=== PATIENT | female | born 1995 | race Caucasian/White ===

== ENCOUNTER 2016-10-22 22:04 | Emergency (ER) | payer OTHER ==
--- NOTE | 2016-10-22 22:11 | EDM.PDOC ---
ED HPI GENERAL MEDICAL PROBLEM - General Chief Complaint: Chest Pain Stated Complaint: PT HAS CHEST AND BACK PAIN Time Seen by Provider: 10/22/16 22:09 - History of Present Illness INITIAL COMMENTS - FREE TEXT/NARRATIVE: HISTORY AND PHYSICAL: History of present illness: Patient's 20-year-old white female presents with chest pain this is vaguely described without associated shortness breath palpitations nausea vomiting fever chills or other concern she states she has had a mild cough this been relatively nonproductive. Patient denies drug or alcohol abuse Review of systems: As per history of present illness and below otherwise all systems reviewed and negative. Past medical history: As per history of present illness and as reviewed below otherwise noncontributory. Surgical history: As per history of present illness and as reviewed below otherwise noncontributory. Social history: No reported history of drug or alcohol abuse. Family history: As per history of present illness and as reviewed below otherwise noncontributory. Physical exam: HEENT: Atraumatic, normocephalic, pupils reactive, negative for conjunctival pallor or scleral icterus, mucous membranes moist, throat clear, neck supple, nontender, trachea midline. Lungs: Clear to auscultation, breath sounds equal bilaterally, chest nontender. Heart: S1S2, regular, negative for clicks, rubs, or JVD. Abdomen: Soft, nondistended, nontender. Negative for masses or hepatosplenomegaly. Negative for costovertebral tenderness. Pelvis: Stable nontender. Genitourinary: Deferred. Rectal: Deferred. Extremities: Atraumatic, negative for cords or calf pain. Neurovascular unremarkable. Neuro: Awake, alert, oriented. Cranial nerves II through XII unremarkable. Cerebellum unremarkable. Motor and sensory unremarkable throughout. Exam nonfocal. Diagnostics: Chest x-ray EKG Therapeutics: None Impression: #1 atypical chest pain Definitive disposition and diagnosis as appropriate pending reevaluation and review of above. - Related Data Allergies Allergy/AdvReac Type Severity Reaction Status Date / Time amoxicillin [Amoxicillin] Allergy Difficulty Verified 07/09/15 19:12 Breathing Iodinated Contrast Media - Allergy Rash Verified 07/09/15 19:12 Oral and [Iodinated Contrast Media - IV Dye] mushroom Allergy Bronchospas Verified 07/10/15 00:30 ms Penicillins Allergy Cannot Verified 07/09/15 19:12 Remember Home Meds: Home Meds FLUoxetine HCl [Fluoxetine] 10 mg PO DAILY 03/06/14 [History] Pregabalin [Lyrica] 75 mg PO BID 03/06/14 [History] Past Medical History - Past Health History Medical/Surgical History: Denies Medical/Surgical History Cardiovascular History: Reports: None Respiratory History: Reports: None Gastrointestinal History: Reports: None Genitourinary History: Reports: None GAS REVERSER History: Reports: None Musculoskeletal History: Reports: Other (See Below) Other Musculoskeletal History: rheumatoid arthritis Neurological History: Reports: None Psychiatric History: Reports: None Oncologic (Cancer) History: Reports: None - Infectious Disease History Infectious Disease History: Reports: None - Past Surgical History HEENT Surgical History: Reports: Tonsillectomy Social & Family History - Family History Family Medical History: Noncontributory - Tobacco Use Smoking Status *Q: Never Smoker Second Hand Smoke Exposure: No - Alcohol Use Days Per Week of Alcohol Use: 0 - Recreational Drug Use Recreational Drug Use: No ED ROS GENERAL - Review of Systems Review Of Systems: ROS reveals no pertinent complaints other than HPI. ED EXAM, GENERAL - Physical Exam Exam: See Below (See dictation) Departure - Departure Time of Disposition: 22:10 Disposition: Home, Self-Care 01 Condition: good Clinical Impression: Atypical chest pain - Discharge Information Forms: ED Department Discharge Additional Instructions: The following information is given to patients seen in the emergency department who are being discharged to home. This information is to outline your options for follow-up care. We provide all patients seen in our emergency department with a follow-up referral. The need for follow-up, as well as the timing and circumstances, are variable depending upon the specifics of your emergency department visit. If you don't have a primary care physician on staff, we will provide you with a referral. We always advise you to contact your personal physician following an emergency department visit to inform them of the circumstance of the visit and for follow-up with them and/or the need for any referrals to a consulting specialist. The emergency department will also refer you to a specialist when appropriate. This referral assures that you have the opportunity for followup care with a specialist. All of these measure are taken in an effort to provide you with optimal care, which includes your followup. Under all circumstances we always encourage you to contact your private physician who remains a resource for coordinating your care. When calling for followup care, please make the office aware that this follow-up is from your recent emergency room visit. If for any reason you are refused follow-up, please contact the emergency department at and asked to speak to the emergency department charge nurse. Follow-up primary medical doctor wanted today's return as needed as discussed
[2016-10-22 23:21] VITALS: BP 117/69
--- NOTE | 2016-10-23 10:52 | CR ---
EXAM DATE: 10/22/16 PATIENT'S AGE: 20 Patient: HANDY COONEY Facility: [place], [place] Site . Site : 1995 Study: XRay Chest [id number] 10:28:03 PM Ordering Physician: Doctor Fortune Final Report: INDICATION: chest pain, SOB TECHNIQUE: Chest radiograph 1 view COMPARISON: 09/21/14 FINDINGS: The study is moderately limited by body habitus. Cardiovascular and mediastinum: The cardiac silhouette is normal in appearance and size. Mediastinum is within normal limits. Lungs and pleural space: Both lungs are unremarkable in appearance with very small lung volumes. No sign of pleural effusion. No pneumothorax is seen. Bones and soft tissues: No significant findings. IMPRESSION: 1. No acute cardiopulmonary disease seen. The study is moderately limited by body habitus. Dictated by: Taurus Corley MD @ 10/22/2016 22:47:37 (Electronic Signature) Report Signed by Proxy. MTDD
== END 2016-10-22 23:20 | disposition home or self-care (01) ==
LOC: MW.ED 22:04
DX: R07.89 Other chest pain (principal); M06.9 Rheumatoid arthritis, unspecified; Z88.0 Allergy status to penicillin; Z88.1 Allergy status to other antibiotic agents; Z91.041 Radiographic dye allergy status; Z79.899 Other long term (current) drug therapy; Z98.890 Other specified postprocedural states
CPT/HCPCS: 71010; 71010-26; 93005; 99282; 99285-25

== ENCOUNTER 2017-04-23 00:11 | Emergency (ER) | payer OTHER ==
[2017-04-23] MEDS ORDERED: Ondansetron 4 MG/2 ML SDV IVPUSH ONE (00:42)
[2017-04-23] MEDS ORDERED: Sodium Chloride 0.9% 10 ML Syringe FLUSH PRN (00:42)
[2017-04-23] MEDS ORDERED: Sodium Chloride 0.9% 2.5 ML Syringe FLUSH PRN (00:42)
[2017-04-23] MEDS ORDERED: Ketorolac 30 MG/ML SDV IVPUSH ONE (00:42)
[2017-04-23] MEDS ORDERED: Morphine 2 MG/ML Syringe IVPUSH ONE (00:42)
[2017-04-23] MEDS ORDERED: Sodium Chloride 0.9% 1,000 ML IV ONE (00:42)
[2017-04-23] MEDS ORDERED: diphenhydrAMINE 50 MG/ML SDV IVPUSH ONE (00:44)
--- NOTE | 2017-04-23 00:44 | EDM.PDOC ---
ED HPI GENERAL MEDICAL PROBLEM - General Chief Complaint: Gastrointestinal Problem Stated Complaint: VOMITING, ABDOMINAL PAIN, SHAKY Time Seen by Provider: 04/23/17 00:35 - History of Present Illness INITIAL COMMENTS - FREE TEXT/NARRATIVE: HISTORY AND PHYSICAL: History of present illness: The patient is a 21-year-old female who presents with complaints of right upper quadrant right upper abdominal pain associated with nausea vomiting and one episode of diarrhea that started after she ate wings and syriac fries at approximately 4:30 PM. According to the patient she was having a complete normal day and had no systemic complaints and she went and had a meal and ate the food as above and as she was eating it she started not feeling very good and on the drive home she started having the right upper abdominal pain and then the vomiting and diarrhea ensued. She said she only had one large episode of diarrhea and none since and it was not black or bloody. She has been able to tolerate sips of fluids since this started but has not taken anything for the pain and the pain has not subsided. It is localized to the right upper abdomen and it is not right flank in etiology. The patient has no urinary complaints and says that she has severe PCO S. She's never had any abdominal surgeries. The patient tells me that she had a gallbladder ultrasound less than a year ago and was told that her gallbladder was "inflamed" but she did not have any further problems and did not seek follow-up treatment. She says that she intermittently will have problems with certain foods causing her to be gassy and have loose stools but nothing causing pain like today. The patient states that initially when her symptoms started she thought it was just "food poisoning " but when the pain persisted she thought it might be her gallbladder again. Review of systems: As per history of present illness and below otherwise all systems reviewed and negative. Past medical history: As per history of present illness and as reviewed below otherwise noncontributory. Surgical history: As per history of present illness and as reviewed below otherwise noncontributory. Social history: No reported history of drug or alcohol abuse. Family history: As per history of present illness and as reviewed below otherwise noncontributory. Physical exam: General: Well-developed overweight female who is nontoxic and vital signs of been reviewed by me. HEENT: Atraumatic, normocephalic, pupils reactive, negative for conjunctival pallor or scleral icterus, mucous membranes tacky, throat clear, neck supple, nontender, trachea midline. Lungs: Clear to auscultation, breath sounds equal bilaterally, chest nontender. Heart: S1S2, regular rate and rhythm no overt murmurs Abdomen: Soft, nondistended, bowel sounds are hypoactive and there is mild tenderness on deep palpation in the right upper abdomen area without rebound or guarding. Negative for masses or hepatosplenomegaly. Negative for costovertebral tenderness. Pelvis: Stable nontender. Genitourinary: Deferred. Rectal: Deferred. Extremities: Atraumatic, negative for cords or calf pain. Neurovascular unremarkable. Neuro: Awake, alert, oriented. Cranial nerves II through XII unremarkable. Cerebellum unremarkable. Motor and sensory unremarkable throughout. Exam nonfocal. Diagnostics: CBC CMP amylase lipase UA UCG CT scan of the abdomen and pelvis Therapeutics: IV fluids Zofran and morphine Toradol and Bentyl Patient is feeling much improved and all results have been discussed with her including the CAT scan findings which only revealed some incidental inguinal lymph nodes which I told her she needs to monitor and follow up with a provider. I will give her Zofran and Bentyl for home and advised her on a low- fat diet and close follow-up. Impression: Abdominal pain with vomiting and diarrhea improved Definitive disposition and diagnosis as appropriate pending reevaluation and review of above. RUQ radiates to Right Back Pain Score (Numeric/FACES): 7 - Related Data Allergies Allergy/AdvReac Type Severity Reaction Status Date / Time amoxicillin [Amoxicillin] Allergy Difficulty Verified 10/22/16 22:14 Breathing Iodinated Contrast- Oral and Allergy Rash Verified 10/22/16 22:14 IV Dye [Iodinated Contrast Media - IV Dye] mushroom Allergy Difficulty Verified 04/23/17 00:25 Breathing Penicillins Allergy Difficulty Verified 04/23/17 00:25 Breathing Home Meds: Home Meds . [No Known Home Meds] 04/23/17 [History] Past Medical History - Past Health History Medical/Surgical History: Denies Medical/Surgical History Cardiovascular History: Reports: None Respiratory History: Reports: None Gastrointestinal History: Reports: None Genitourinary History: Reports: None PRINT SUPPORT SPECIALIST History: Reports: None Musculoskeletal History: Reports: RA, Other (See Below) Other Musculoskeletal History: rheumatoid arthritis Neurological History: Reports: Migraines Psychiatric History: Reports: None Oncologic (Cancer) History: Reports: None - Infectious Disease History Infectious Disease History: Reports: None - Past Surgical History HEENT Surgical History: Reports: Tonsillectomy Social & Family History - Family History Family Medical History: Noncontributory - Tobacco Use Smoking Status *Q: Never Smoker Years of Tobacco use: 2 Packs/Tins Daily: 0.1 Second Hand Smoke Exposure: No - Alcohol Use Days Per Week of Alcohol Use: 0 - Recreational Drug Use Recreational Drug Use: No ED ROS GENERAL - Review of Systems Review Of Systems: ROS reveals no pertinent complaints other than HPI. ED EXAM, GENERAL - Physical Exam Exam: See Below (See dictation) Course - Vital Signs Last Recorded V/S: Last Vital Signs Temp 36.6 C 04/23/17 00:26 Pulse 107 H 04/23/17 00:26 Resp 18 04/23/17 00:26 BP 137/84 04/23/17 00:26 Pulse Ox 97 04/23/17 00:26 - Orders/Labs/Meds Orders: Active Orders 24 hr Category Date Time Status Abdomen Pelvis w Cont [CT] Stat Exams 04/23/17 00:42 Ordered HCG QUALITATIVE,SERUM [CHEM] Stat Lab 04/23/17 01:39 Ordered UA W/MICROSCOPIC [URIN] Stat Lab 04/23/17 00:41 Ordered Dicyclomine [Bentyl] Med 04/23/17 02:12 Once 20 mg PO ONETIME ONE Iopamidol [Isovue-370 (76%)] Med 04/23/17 01:47 Stat 100 ml IVPUSH ONETIME STA Iopamidol [Isovue-370 (76%)] Med 04/23/17 01:50 Stat 100 ml IVPUSH ONETIME STA Sodium Chloride 0.9% [Normal Saline] 1,000 ml Med 04/23/17 00:42 Active IV STAT Sodium Chloride 0.9% [Saline Flush] Med 04/23/17 00:42 Active 10 ml FLUSH ASDIRECTED PRN Sodium Chloride 0.9% [Saline Flush] Med 04/23/17 00:42 Active 2.5 ml FLUSH ASDIRECTED PRN Saline Lock Insert [OM.PC] Stat Oth 04/23/17 00:41 Ordered Medication Orders Sodium Chloride (Normal Saline) 1,000 mls @ 999 mls/hr IV STAT ONE Stop: 04/23/17 01:42 Last Admin: 04/23/17 01:02 Dose: 999 mls/hr Sodium Chloride (Saline Flush) 10 ml FLUSH ASDIRECTED PRN PRN Reason: Keep Vein Open Sodium Chloride (Saline Flush) 2.5 ml FLUSH ASDIRECTED PRN PRN Reason: Keep Vein Open Labs: Laboratory Tests 04/23/17 04/23/17 Range/Units 00:30 00:30 WBC 13.93 H (4.0-11.0) K/uL RBC 4.72 (4.30-5.90) M/uL Hgb 13.8 (12.0-16.0) g/dL Hct 41.6 (36.0-46.0) % MCV 88.1 (80.0-98.0) fL MCH 29.2 (27.0-32.0) pg MCHC 33.2 (31.0-37.0) g/dL RDW Std Deviation 44.2 (28.0-62.0) fl RDW Coeff of John 14 (11.0-15.0) % Plt Count 306 (150-400) K/uL MPV 9.50 (7.40-12.00) fL Neut % (Auto) 80.4 H (48.0-80.0) % Lymph % (Auto) 12.2 L (16.0-40.0) % [place] % (Auto) 6.6 (0.0-15.0) % Eos % (Auto) 0.5 (0.0-7.0) % Baso % (Auto) 0.3 (0.0-1.5) % Neut # (Auto) 11.2 H (1.4-5.7) K/uL Lymph # (Auto) 1.7 (0.6-2.4) K/uL [place] # (Auto) 0.9 H (0.0-0.8) K/uL Eos # (Auto) 0.1 (0.0-0.7) K/uL Baso # (Auto) 0.0 (0.0-0.1) K/uL Nucleated RBC % 0.0 /100WBC Nucleated RBCs # 0 K/uL Sodium 144 (136-146) mmol/L Potassium 3.9 (3.5-5.1) mmol/L Chloride 108 (98-110) mmol/L Carbon Dioxide 26 (21-31) mmol/L BUN 14 (6.0-23.0) mg/dL Creatinine 1.0 (0.6-1.5) mg/dL Est Cr Clr Drug Dosing 85.09 mL/min Estimated GFR (MDRD) > 60.0 ml/min Glucose 105 (60-110) mg/dL Calcium 9.9 (8.8-10.8) mg/dL Total Bilirubin 0.3 (0.1-1.5) mg/dL AST 18 (5-40) IU/L ALT 16 (8-54) IU/L Alkaline Phosphatase 76 (40-150) Total Protein 8.1 H (6.0-8.0) g/dL Albumin 4.5 (3.5-5.0) g/dL Globulin 3.6 H (2.0-3.5) g/dL Albumin/Globulin Ratio 1.3 (1.3-2.8) Amylase 47 (10-90) U/L Lipase 60 (7-80) U/L Meds: Medications Generic Name Dose Route Start Last Admin Trade Name Freq PRN Reason Stop Dose Admin Sodium Chloride 1,000 mls @ 999 mls/hr 04/23/17 00:42 04/23/17 01:02 Normal Saline IV 04/23/17 01:42 999 mls/hr STAT ONE Administration Sodium Chloride 10 ml 04/23/17 00:42 Saline Flush FLUSH ASDIRECTED PRN Keep Vein Open Sodium Chloride 2.5 ml 04/23/17 00:42 Saline Flush FLUSH ASDIRECTED PRN Keep Vein Open Discontinued Medications Generic Name Dose Route Start Last Admin Trade Name Freq PRN Reason Stop Dose Admin Diphenhydramine HCl 50 mg 04/23/17 00:44 04/23/17 01:05 Benadryl IVPUSH 04/23/17 00:45 50 mg ONETIME ONE Administration Ketorolac Tromethamine 30 mg 04/23/17 00:42 04/23/17 01:04 Toradol IVPUSH 04/23/17 00:43 30 mg ONETIME ONE Administration Morphine Sulfate 2 mg 04/23/17 00:42 04/23/17 01:09 Morphine IVPUSH 04/23/17 00:43 2 mg ONETIME ONE Administration Ondansetron HCl 4 mg 04/23/17 00:42 04/23/17 01:02 Zofran IVPUSH 04/23/17 00:43 4 mg ONETIME ONE Administration Departure - Departure Time of Disposition: 02:13 Disposition: Home, Self-Care 01 Condition: Good Clinical Impression: Vomiting, Diarrhea, Abdominal pain - Discharge Information Referrals: PCP,None [Primary Care Provider] - Forms: ED Department Discharge Additional Instructions: The following information is given to patients seen in the emergency department who are being discharged to home. This information is to outline your options for follow-up care. We provide all patients seen in our emergency department with a follow-up referral. The need for follow-up, as well as the timing and circumstances, are variable depending upon the specifics of your emergency department visit. If you don't have a primary care physician on staff, we will provide you with a referral. We always advise you to contact your personal physician following an emergency department visit to inform them of the circumstance of the visit and for follow-up with them and/or the need for any referrals to a consulting specialist. The emergency department will also refer you to a specialist when appropriate. This referral assures that you have the opportunity for followup care with a specialist. All of these measure are taken in an effort to provide you with optimal care, which includes your followup. Under all circumstances we always encourage you to contact your private physician who remains a resource for coordinating your care. When calling for followup care, please make the office aware that this follow-up is from your recent emergency room visit. If for any reason you are refused follow-up, please contact the [facility] emergency department at and ask to speak to the emergency department charge nurse. [facility] Primary care- [place] [address] Push hydration and and eating a bland low-fat diet. Please call our clinic and follow-up with a provider in the next 1-2 days for reevaluation and further care. Rest and return to ER as needed and as discussed. Use medications you have been given via [facility], Zofran and dicyclomine, as needed for abdominal cramping nausea and vomiting. - My Orders Last 24 Hours: My Active Orders 04/23/17 00:41 UA W/MICROSCOPIC [URIN] Stat Saline Lock Insert [OM.PC] Stat 04/23/17 00:42 Abdomen Pelvis w Cont [CT] Stat Sodium Chloride 0.9% [Normal Saline] 1,000 ml IV STAT Sodium Chloride 0.9% [Saline Flush] 10 ml FLUSH ASDIRECTED PRN Sodium Chloride 0.9% [Saline Flush] 2.5 ml FLUSH ASDIRECTED PRN 04/23/17 01:39 HCG QUALITATIVE,SERUM [CHEM] Stat 04/23/17 01:47 Iopamidol [Isovue-370 (76%)] 100 ml IVPUSH ONETIME STA 04/23/17 01:50 Iopamidol [Isovue-370 (76%)] 100 ml IVPUSH ONETIME STA 04/23/17 02:12 Dicyclomine [Bentyl] 20 mg PO ONETIME ONE - Assessment/Plan Last 24 Hours: My Active Orders 04/23/17 00:41 UA W/MICROSCOPIC [URIN] Stat Saline Lock Insert [OM.PC] Stat 04/23/17 00:42 Abdomen Pelvis w Cont [CT] Stat Sodium Chloride 0.9% [Normal Saline] 1,000 ml IV STAT Sodium Chloride 0.9% [Saline Flush] 10 ml FLUSH ASDIRECTED PRN Sodium Chloride 0.9% [Saline Flush] 2.5 ml FLUSH ASDIRECTED PRN 04/23/17 01:39 HCG QUALITATIVE,SERUM [CHEM] Stat 04/23/17 01:47 Iopamidol [Isovue-370 (76%)] 100 ml IVPUSH ONETIME STA 04/23/17 01:50 Iopamidol [Isovue-370 (76%)] 100 ml IVPUSH ONETIME STA 04/23/17 02:12 Dicyclomine [Bentyl] 20 mg PO ONETIME ONE
[2017-04-23 01:03] LABS: CHLORIDE,CL 108 mmol/L (98-110); SODIUM,NA 144 mmol/L (136-146)
[2017-04-23] MEDS ORDERED: Iopamidol 755 Mg/ML 100 ML Bottle IVPUSH STA ×2 (01:47→01:50)
[2017-04-23] MEDS ORDERED: Iopamidol 755 Mg/ML 100 ML Bottle IV ONE (01:48)
[2017-04-23] MEDS ORDERED: Dicyclomine 10 MG Cap PO ONE (02:12)
[2017-04-23] MEDS ORDERED: Dicyclomine 10 MG Cap ONE (02:21)
[2017-04-23 06:30] VITALS: BP 97/45
--- NOTE | 2017-04-23 10:36 | CT ---
EXAM DATE: 04/23/17 PATIENT'S AGE: 21 Patient: HANDY COONEY Facility: [place], [place] Site . Site : 1995 Study: CT Abdomen/Pelvis [id number] 1:58:18 AM Ordering Physician: Layla Campuzano Final Report: INDICATION: Right sided abdominal pain, vomiting. TECHNIQUE: CT Abdomen and pelvis with i.v. contrast. Coronal and sagittal reformats were obtained. CONTRAST: 100 mL Isovue 370 COMPARISON: None FINDINGS: Lower chest: Unremarkable. Liver: Unremarkable. Spleen: Unremarkable. Pancreas: Unremarkable. Gallbladder: Unremarkable. Kidney: Unremarkable. No kidney or ureteral stones or obstruction seen. Adrenal: Unremarkable. Bowel: Unremarkable. The appendix is normal in appearance and size. Vascular: Unremarkable. Lymph: Mild bilateral inguinal adenopathy present with lymph nodes measuring up to 1 cm. Peritoneum: Unremarkable. No pneumoperitoneum is seen. No significant ascites is noted. Pelvis: Unremarkable. Soft tissue: Unremarkable. Bone: Unremarkable for age. IMPRESSION: 1. Unremarkable with no CT correlate for the patient`s symptoms seen. Dictated by Taurus Corley MD @ 04/23/2017 2:03:26 AM Dictated by: Taurus Corley MD @ 04/23/2017 02:03:31 (Electronic Signature) Report Signed by Proxy. [facility]ARE SYSTEMAleks
== END 2017-04-23 02:50 | disposition home or self-care (01) ==
LOC: MW.ED 00:11
DX: R10.11 Right upper quadrant pain (principal); R11.2 Nausea with vomiting, unspecified; R19.7 Diarrhea, unspecified; Z88.1 Allergy status to other antibiotic agents; Z88.0 Allergy status to penicillin; Z91.041 Radiographic dye allergy status; Z91.018 Allergy to other foods
CPT/HCPCS: 36415; 74177; 80053; 81001; 82150; 83690; 84703; 85025; 96361; 96374; 96375; 99284; J1200; J1885; J2270; J2405; J7040

== ENCOUNTER 2019-01-03 18:04 | Emergency (ER) | payer OTHER ==
[2019-01-03] MEDS ORDERED: Sodium Chloride 0.9% 1,000 ML IV ONE (18:21)
--- NOTE | 2019-01-03 18:30 | EDM.PDOC ---
ED HPI GENERAL MEDICAL PROBLEM - General Chief Complaint: Headache Stated Complaint: STOMACH PAIN Time Seen by Provider: 01/03/19 18:11 Source of Information: Reports: Patient History Limitations: Reports: No Limitations - History of Present Illness INITIAL COMMENTS - FREE TEXT/NARRATIVE: HISTORY AND PHYSICAL: History of present illness: Patient is a 23-year-old female presents to the ED today with concern of headache and abdominal pain 3 days. Patient states that she has taken over-the- counter ibuprofen without relief of symptoms. Patient states she feels nauseous and dizzy and worse when trying to sit up or move. Patient states the abdominal pain is in the upper abdomen and worse when she tries to eat or drink but she has been eating and drinking appropriately. Patient denies any health history. Patient states she is sexually active and not on control so there might be a chance of . Patient denies fever, chills, chest pain, shortness of breath, or cough. Denies neck stiff ness, change in vision, syncope, or near syncope. Denies vomiting, diarrhea, constipation, or dysuria. Has not noted any blood in urine or stool. Patient has been eating and drinking appropriately. Review of systems: As per history of present illness and below otherwise all systems reviewed and negative. Past medical history: As per history of present illness and as reviewed below otherwise noncontributory. Surgical history: As per history of present illness and as reviewed below otherwise noncontributory. Social history: See social history for further information Family history: As per history of present illness and as reviewed below otherwise noncontributory. Physical exam: General: Patient is alert, oriented, and in no acute distress. Patient laying comfortably on exam table. HEENT: Atraumatic, normocephalic, pupils equal and reactive bilaterally, negative for conjunctival pallor or scleral icterus, mucous membranes moist, TMs normal bilaterally, throat clear, neck supple, nontender, trachea midline. No drooling or trismus noted. No meningeal signs. No hot potato voice noted. Lungs: Clear to auscultation, breath sounds equal bilaterally, chest nontender. Heart: S1S2, regular rate and rhythm without overt murmur Abdomen: Soft, nondistended, mild-moderate tenderness to palpation of the upper abdomen. Negative for masses or hepatosplenomegaly. Negative for costovertebral tenderness. Pelvis: Stable nontender. Genitourinary: Deferred. Rectal: Deferred. Skin: Intact, warm, dry. No lesions or rashes noted. Extremities: Atraumatic, negative for cords or calf pain. Neurovascular unremarkable. Neuro: Awake, alert, oriented. Cranial nerves II through XII unremarkable. Cerebellum unremarkable. Motor and sensory unremarkable throughout. Exam nonfocal. Notes: Patient expresses resolution of symptoms with therapeutics today. Discussed the importance for follow-up with a primary care provider. Voices understanding and is agreeable to plan of care. Denies any further questions or concerns at this time. Diagnostics: CBC, CMP, UA, hCG Quant, lipase, abd/pelvic CT, head CT, urine culture Therapeutics: saline, Toradol, Benadryl, Reglan, Zofran Prescription: None Impression: Upper abdominal pain Headache, unspecified Plan: 1. Encourage small but frequent sips of fluid to prevent dehydration. 2. You can alternate ibuprofen and Tylenol as directed for pain and discomfort. 3. Follow up with her primary care provider as discussed. Return to the ED as needed and as discussed. Definitive disposition and diagnosis as appropriate pending reevaluation and review of above. Headache Pain Score (Numeric/FACES): 6 - Related Data Allergies Allergy/AdvReac Type Severity Reaction Status Date / Time amoxicillin [Amoxicillin] Allergy Difficulty Verified 01/03/19 18:10 Breathing Iodinated Contrast Media Allergy Rash Verified 01/03/19 18:10 [Iodinated Contrast Media - IV Dye] mushroom Allergy Difficulty Verified 01/03/19 18:10 Breathing Penicillins Allergy Difficulty Verified 01/03/19 18:10 Breathing Home Meds: Home Meds Cyclobenzaprine [Flexeril] 10 mg PO BEDTIME #10 tab 02/25/18 [Rx] Diclofenac Sodium [Voltaren] 75 mg PO BIDMEALS #20 tab.cr 02/25/18 [Rx] Past Medical History - Past Health History Medical/Surgical History: Denies Medical/Surgical History HEENT History: Reports: None Cardiovascular History: Reports: None Respiratory History: Reports: None Gastrointestinal History: Reports: None Genitourinary History: Reports: None SILK WEAVER History: Reports: None Musculoskeletal History: Reports: RA, Other (See Below) Other Musculoskeletal History: rheumatoid arthritis Neurological History: Reports: Migraines Psychiatric History: Reports: Anxiety Endocrine/Metabolic History: Reports: None Hematologic History: Reports: None Immunologic History: Reports: None Oncologic (Cancer) History: Reports: None Dermatologic History: Reports: None - Infectious Disease History Infectious Disease History: Reports: None - Past Surgical History HEENT Surgical History: Reports: Tonsillectomy Social & Family History - Family History Family Medical History: Noncontributory - Tobacco Use Smoking Status *Q: Never Smoker - Caffeine Use Caffeine Use: Reports: Coffee - Recreational Drug Use Recreational Drug Use: No ED ROS GENERAL - Review of Systems Review Of Systems: ROS reveals no pertinent complaints other than HPI. ED EXAM, GENERAL - Physical Exam Exam: See Below (See dictation) Course - Vital Signs Last Recorded V/S: Last Vital Signs Temp 36.3 C 01/03/19 18:11 Pulse 65 01/03/19 18:11 Resp 18 01/03/19 18:11 BP 119/71 01/03/19 18:11 Pulse Ox 97 01/03/19 18:11 - Orders/Labs/Meds Orders: Active Orders 24 hr Category Date Time Status EKG Documentation Completion [RC] STAT Care 01/03/19 18:21 Active Labs: Laboratory Tests 01/03/19 01/03/19 01/03/19 Range/Units 18:30 18:30 18:30 WBC 6.75 (4.0-11.0) K/uL RBC 4.33 (4.30-5.90) M/uL Hgb 12.7 (12.0-16.0) g/dL Hct 38.5 (36.0-46.0) % MCV 88.9 (80.0-98.0) fL MCH 29.3 (27.0-32.0) pg MCHC 33.0 (31.0-37.0) g/dL RDW Std Deviation 44.7 (28.0-62.0) fl RDW Coeff of John 14 (11.0-15.0) % Plt Count 364 (150-400) K/uL MPV 9.10 (7.40-12.00) fL Neut % (Auto) 53.6 (48.0-80.0) % Lymph % (Auto) 36.0 (16.0-40.0) % Page % (Auto) 8.0 (0.0-15.0) % Eos % (Auto) 2.1 (0.0-7.0) % Baso % (Auto) 0.3 (0.0-1.5) % Neut # (Auto) 3.6 (1.4-5.7) K/uL Lymph # (Auto) 2.4 (0.6-2.4) K/uL Page # (Auto) 0.5 (0.0-0.8) K/uL Eos # (Auto) 0.1 (0.0-0.7) K/uL Baso # (Auto) 0.0 (0.0-0.1) K/uL Nucleated RBC % 0.0 /100WBC Nucleated RBCs # 0 K/uL Sodium 141 (136-145) mmol/L Potassium 3.9 (3.5-5.1) mmol/L Chloride 105 (98-107) mmol/L Carbon Dioxide 27.4 (21.0-32.0) mmol/L BUN 14 (7.0-18.0) mg/dL Creatinine 1.0 (0.6-1.0) mg/dL Est Cr Clr Drug Dosing 83.63 mL/min Estimated GFR (MDRD) > 60.0 ml/min Glucose 98 (74-106) mg/dL Calcium 9.4 (8.5-10.1) mg/dL Total Bilirubin 0.2 (0.2-1.0) mg/dL AST 11 L (15-37) IU/L ALT 21 (14-63) IU/L Alkaline Phosphatase 77 (46-116) U/L Total Protein 7.0 (6.4-8.2) g/dL Albumin 3.8 (3.4-5.0) g/dL Globulin 3.2 (2.6-4.0) g/dL Albumin/Globulin Ratio 1.2 (0.9-1.6) Lipase 248 (73-393) U/L HCG, Qual NEGATIVE (NEG) Urine Color Urine Appearance Urine pH (5.0-8.0) Ur Specific [place] (1.001-1.035) Urine Protein (NEGATIVE) mg/dL Urine Glucose (UA) (NEGATIVE) mg/dL Urine Ketones (NEGATIVE) mg/dL Urine Occult Blood (NEGATIVE) Urine Nitrite (NEGATIVE) Urine Bilirubin (NEGATIVE) Urine Urobilinogen (<2.0) EU/dL Ur Leukocyte Esterase (NEGATIVE) Urine RBC (0-2/HPF) Urine WBC (0-5/HPF) Ur Epithelial Cells (NONE-FEW) Urine Bacteria (NEGATIVE) 01/03/19 Range/Units 19:50 WBC (4.0-11.0) K/uL RBC (4.30-5.90) M/uL Hgb (12.0-16.0) g/dL Hct (36.0-46.0) % MCV (80.0-98.0) fL MCH (27.0-32.0) pg MCHC (31.0-37.0) g/dL RDW Std Deviation (28.0-62.0) fl RDW Coeff of John (11.0-15.0) % Plt Count (150-400) K/uL MPV (7.40-12.00) fL Neut % (Auto) (48.0-80.0) % Lymph % (Auto) (16.0-40.0) % Page % (Auto) (0.0-15.0) % Eos % (Auto) (0.0-7.0) % Baso % (Auto) (0.0-1.5) % Neut # (Auto) (1.4-5.7) K/uL Lymph # (Auto) (0.6-2.4) K/uL Page # (Auto) (0.0-0.8) K/uL Eos # (Auto) (0.0-0.7) K/uL Baso # (Auto) (0.0-0.1) K/uL Nucleated RBC % /100WBC Nucleated RBCs # K/uL Sodium (136-145) mmol/L Potassium (3.5-5.1) mmol/L Chloride (98-107) mmol/L Carbon Dioxide (21.0-32.0) mmol/L BUN (7.0-18.0) mg/dL Creatinine (0.6-1.0) mg/dL Est Cr Clr Drug Dosing mL/min Estimated GFR (MDRD) ml/min Glucose (74-106) mg/dL Calcium (8.5-10.1) mg/dL Total Bilirubin (0.2-1.0) mg/dL AST (15-37) IU/L ALT (14-63) IU/L Alkaline Phosphatase (46-116) U/L Total Protein (6.4-8.2) g/dL Albumin (3.4-5.0) g/dL Globulin (2.6-4.0) g/dL Albumin/Globulin Ratio (0.9-1.6) Lipase (73-393) U/L HCG, Qual (NEG) Urine Color YELLOW Urine Appearance SLT CLOUDY Urine pH 6.0 (5.0-8.0) Ur Specific [place] >= 1.030 (1.001-1.035) Urine Protein TRACE H (NEGATIVE) mg/dL Urine Glucose (UA) NEGATIVE (NEGATIVE) mg/dL Urine Ketones TRACE H (NEGATIVE) mg/dL Urine Occult Blood LARGE H (NEGATIVE) Urine Nitrite NEGATIVE (NEGATIVE) Urine Bilirubin NEGATIVE (NEGATIVE) Urine Urobilinogen 0.2 (<2.0) EU/dL Ur Leukocyte Esterase NEGATIVE (NEGATIVE) Urine RBC 2-4 (0-2/HPF) Urine WBC 1-2 (0-5/HPF) Ur Epithelial Cells MODERATE (NONE-FEW) Urine Bacteria 1+ H (NEGATIVE) Meds: Medications Discontinued Medications Generic Name Dose Route Start Last Admin Trade Name Freq PRN Reason Stop Dose Admin Diphenhydramine HCl 25 mg 01/03/19 19:04 01/03/19 19:56 Benadryl IVPUSH 01/03/19 19:05 25 mg ONETIME ONE Administration Sodium Chloride 1,000 mls @ 999 mls/hr 01/03/19 18:21 01/03/19 18:42 Normal Saline IV 01/03/19 19:21 999 mls/hr BOLUS ONE Administration Ketorolac Tromethamine 30 mg 01/03/19 19:03 01/03/19 19:58 Toradol IVPUSH 01/03/19 19:04 30 mg ONETIME ONE Administration Metoclopramide HCl 10 mg 01/03/19 19:04 01/03/19 20:00 Reglan IV 01/03/19 19:05 10 mg ONETIME ONE Administration Ondansetron HCl 4 mg 01/03/19 19:03 01/03/19 19:56 Zofran IVPUSH 01/03/19 19:04 4 mg ONETIME ONE Administration Departure - Departure Time of Disposition: 20:57 Disposition: Home, Self-Care 01 Clinical Impression: Upper abdominal pain Headache Qualifiers: Headache type: unspecified Headache chronicity pattern: acute headache Intractability: not intractable Qualified Code(s): R51 - Headache - Discharge Information Referrals: PCP,Not In Area [Primary Care Provider] - Forms: ED Department Discharge Additional Instructions: The following information is given to patients seen in the emergency department who are being discharged to home. This information is to outline your options for follow-up care. We provide all patients seen in our emergency department with a follow-up referral. The need for follow-up, as well as the timing and circumstances, are variable depending upon the specifics of your emergency department visit. If you don't have a primary care physician on staff, we will provide you with a referral. We always advise you to contact your personal physician following an emergency department visit to inform them of the circumstance of the visit and for follow-up with them and/or the need for any referrals to a consulting specialist. The emergency department will also refer you to a specialist when appropriate. This referral assures that you have the opportunity for follow-up care with a specialist. All of these measure are taken in an effort to provide you with optimal care, which includes your follow-up. Under all circumstances we always encourage you to contact your private physician who remains a resource for coordinating your care. When calling for follow-up care, please make the office aware that this follow-up is from your recent emergency room visit. If for any reason you are refused follow-up, please contact the [facility] Emergency Department at and asked to speak to the emergency department charge nurse. [facility] Primary Care [address] [place] [address] [id number] [address] [address] 1. Encourage small but frequent sips of fluid to prevent dehydration. 2. You can alternate ibuprofen and Tylenol as directed for pain and discomfort. 3. Follow up with her primary care provider as discussed. Return to the ED as needed and as discussed. - My Orders Last 24 Hours: My Active Orders 08/19/19 18:21 EKG Documentation Completion [RC] STAT - Assessment/Plan Last 24 Hours: My Active Orders 01/03/19 18:21 EKG Documentation Completion [RC] STAT
[2019-01-03] MEDS ORDERED: Ketorolac 30 MG/ML SDV IVPUSH ONE (19:03)
[2019-01-03] MEDS ORDERED: Ondansetron 4 MG/2 ML SDV IVPUSH ONE (19:03)
[2019-01-03] MEDS ORDERED: diphenhydrAMINE 50 MG/ML SDV IVPUSH ONE (19:04)
[2019-01-03] MEDS ORDERED: Metoclopramide 10 MG/2 ML SDV IV ONE (19:04)
[2019-01-03 19:05] LABS: CHLORIDE,CL 105 mmol/L (98-107); SODIUM,NA 141 mmol/L (136-145)
--- NOTE | 2019-01-03 20:39 | CT ---
INDICATION: Headache COMPARISON: None available. TECHNIQUE: CT examination of the head was performed with 3 mm thick axial sections without intravenous contrast. Images were obtained from the vertex of the skull through the skull base, and I examined the images with the brain and bone windows. Please note that all CT scans at this facility use dose modulation, iterative reconstruction, and/or weight-based dosing when appropriate to reduce radiation dose to as low as reasonably achievable. FINDINGS: : The brain is normal in appearance for the patient`s age on today`s study, with no sign of mass lesion, mass effect, hemorrhage, or edema. The ventricles and sulci are normal in appearance for the patient`s age. There is an old right medial orbital blowout fracture. The orbits are otherwise normal in appearance. The visualized portions of the paranasal sinuses and mastoids are clear. The osseous structures are normal in their appearance with no sign of abnormality in the skull base or calvarium. IMPRESSION: No sign of any abnormality in the brain. Nothing seen in the brain to correlate with a history of headaches. Old right medial orbital blowout fracture. Please note that all CT scans at this facility use dose modulation, iterative reconstruction, and/or weight-based dosing when appropriate to reduce radiation dose to as low as reasonably achievable. Dictated by Quintin Arndt MD @ Jan 03 2019 8:36PM Signed by Dr. Quintin Arndt @ Jan 03 2019 8:38PM
--- NOTE | 2019-01-03 20:46 | CT ---
INDICATION: Abdominal pain COMPARISON: Previous report of the CT of the abdomen and pelvis from 04/23/2017 TECHNIQUE: CT examination of the abdomen and pelvis was performed without contrast enhancement using 3 mm thick axial sections from the lung bases through the pubic symphysis. Oral contrast was not administered. Please note that all CT scans at this facility use dose modulation, iterative reconstruction, and/or weight-based dosing when appropriate to reduce radiation dose to as low as reasonably achievable. FINDINGS: In the abdomen, the unenhanced liver, spleen, pancreas, and adrenals are normal in appearance. The unenhanced kidneys are normal in appearance. The gallbladder is normal in appearance. The abdominal aorta is normal in caliber with no sign of dilatation. There is no sign of retroperitoneal mass or adenopathy. The stomach, loops of small bowel, and colon in the abdomen are normal in appearance. In the pelvis, the appendix is normal in appearance with no sign of inflammatory process. The loops of small bowel and colon in the pelvis are normal in appearance. The uterus and adnexal regions are normal in appearance. The urinary bladder is normal in appearance. There is no sign of pelvic or inguinal mass or adenopathy. The previously seen mild bilateral inguinal adenopathy has resolved. The lung bases are clear. The osseous structures are normal in appearance for the patient`s age. IMPRESSION: Nothing seen to explain the patient`s abdominal pain. Normal CT of the abdomen without contrast. Normal CT of the pelvis without contrast. Resolution of the previously seen mild bilateral inguinal lymphadenopathy. Please note that all CT scans at this facility use dose modulation, iterative reconstruction, and/or weight-based dosing when appropriate to reduce radiation dose to as low as reasonably achievable. Dictated by Quintin Arndt MD @ Jan 03 2019 8:39PM Signed by Dr. Quintin Arndt @ Jan 03 2019 8:45PM
[2019-01-03 21:10] VITALS: BP 100/60
== END 2019-01-03 21:05 | disposition home or self-care (01) ==
LOC: MW.ED 18:04
DX: R51 Headache (principal); R10.10 Upper abdominal pain, unspecified; Z88.1 Allergy status to other antibiotic agents; Z91.041 Radiographic dye allergy status; Z88.0 Allergy status to penicillin; Z91.018 Allergy to other foods
CPT/HCPCS: 36415; 70450; 74176; 80053; 81001; 83690; 84703; 85025; 93005; 96361; 96374; 96375; 99284; J1200; J1885; J2405; J2765; J7040

== ENCOUNTER 2019-04-28 18:29 | Emergency (ER) | payer OTHER ==
[2019-04-28 19:09] VITALS: BP 116/63; PULSE 104
--- NOTE | 2019-04-28 19:28 | EDM.PDOC ---
ED HPI GENERAL MEDICAL PROBLEM - General Chief Complaint: Respiratory Problem Stated Complaint: COUGH, TEMPERATURE, SOB Time Seen by Provider: 04/28/19 19:20 Source of Information: Reports: Patient History Limitations: Reports: No Limitations - History of Present Illness INITIAL COMMENTS - FREE TEXT/NARRATIVE: HISTORY AND PHYSICAL: History of present illness: Patient presents to the ED with c/o body aches, fever, chills, and cough. She states symptoms started on Thursday. She has been using Ibuprofen and Tylenol routinely without feeling any relief. Patient denies any fever, chills, headache , change in vision, syncope or near syncope. Denies any chest pain, back pain, shortness of breath or cough. Denies any abdominal pain, nausea, vomiting, diarrhea, constipation or dysuria. Has not noted any blood in urine or stool. Patient has been eating and drinking appropriately. Review of systems: As per history of present illness and below otherwise all systems reviewed and negative. Past medical history: As per history of present illness and as reviewed below otherwise noncontributory. Surgical history: As per history of present illness and as reviewed below otherwise noncontributory. Social history: See social history for further information Family history: As per history of present illness and as reviewed below otherwise noncontributory. Physical exam: General: Well developed and well nourished 23 year old female. A&O x 3. Nontoxic appearing and no acute distress. HEENT: Atraumatic, normocephalic, pupils equal and reactive bilaterally, negative for conjunctival pallor or scleral icterus, mucous membranes moist, TMs normal bilaterally, throat clear, neck supple, nontender, trachea midline. No drooling or trismus noted. No meningeal signs. No hot potato voice noted. Lungs: Clear to auscultation, breath sounds equal bilaterally, chest nontender. Heart: S1S2, regular rate and rhythm without overt murmur Abdomen: Soft, nondistended, nontender. Negative for masses or hepatosplenomegaly. Negative for costovertebral tenderness. Pelvis: Stable nontender. Skin: Intact, warm, dry. No lesions or rashes noted. Extremities: Atraumatic, moves all extremities per self without difficulty or deficits, negative for cords or calf pain. Neurovascular unremarkable. Neuro: Awake, alert, oriented. Cranial nerves II through XII unremarkable. Cerebellum unremarkable. Motor and sensory unremarkable throughout. Exam nonfocal. Notes: Patient's influenza B is positive. CXR shows no acute findings. VSS. Medication and supportive care measures were reviewed and discussed. Voices understanding and is agreeable to plan of care. Denies any further questions or concerns at this time. Diagnostics: CXR, Influenza Therapeutics: None Prescription: Phenergan w/ codeine (#4oz) Impression: Influenza B Plan: 1. Standard contact precautions (covering mouth while coughing, avoid sharing drinking cups and eating utensils). Please make sure you're doing good handwashing as this is contagious. 2. Please take the medications as directed. Phenergan with codeine will cause drowsiness, do not take while driving. 3. Supportive care measures such as Tylenol and/or ibuprofen for pain and fever management.Encourage small frequent sips of fluids to prevent dehydration. 4. Follow-up with your drain technician in the next 1-2 days. Return to the ED as needed and as discussed. Definitive disposition and diagnosis as appropriate pending reevaluation and review of above. generalized body aches Pain Score (Numeric/FACES): 5 - Related Data Allergies Allergy/AdvReac Type Severity Reaction Status Date / Time amoxicillin [Amoxicillin] Allergy Difficulty Verified 04/28/19 18:42 Breathing Iodinated Contrast Media Allergy Rash Verified 04/28/19 18:42 [Iodinated Contrast Media - IV Dye] mushroom Allergy Difficulty Verified 04/28/19 18:42 Breathing Penicillins Allergy Difficulty Verified 04/28/19 18:42 Breathing Home Meds: Home Meds DULoxetine [Cymbalta] 60 mg PO DAILY 04/28/19 [History] Past Medical History - Past Health History Medical/Surgical History: Denies Medical/Surgical History HEENT History: Reports: None Cardiovascular History: Reports: None Respiratory History: Reports: None Gastrointestinal History: Reports: None Genitourinary History: Reports: None 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 Musculoskeletal History: Reports: RA, Other (See Below) Other Musculoskeletal History: rheumatoid arthritis Neurological History: Reports: Migraines Psychiatric History: Reports: Anxiety Endocrine/Metabolic History: Reports: None Hematologic History: Reports: None Immunologic History: Reports: None Oncologic (Cancer) History: Reports: None Dermatologic History: Reports: None - Infectious Disease History Infectious Disease History: Reports: None - Past Surgical History HEENT Surgical History: Reports: Tonsillectomy Social & Family History - Family History Family Medical History: Noncontributory - Tobacco Use Smoking Status *Q: Never Smoker - Caffeine Use Caffeine Use: Reports: Coffee, Soda - Recreational Drug Use Recreational Drug Use: No ED ROS GENERAL - Review of Systems Review Of Systems: Comprehensive ROS is negative, except as noted in HPI. ED EXAM, GENERAL - Physical Exam Exam: See Below (See dictation) Course - Vital Signs Last Recorded V/S: Last Vital Signs Temp 98.1 F 04/28/19 18:39 Pulse 104 H 04/28/19 18:39 Resp 18 04/28/19 18:39 BP 116/63 04/28/19 18:39 Pulse Ox 97 04/28/19 18:39 - Orders/Labs/Meds Orders: Active Orders 24 hr Category Date Time Status Chest 2V [CR] Stat Exams 04/28/19 18:33 Ordered Departure - Departure Time of Disposition: 19:37 Disposition: Home, Self-Care 01 Clinical Impression: Influenza B - Discharge Information Instructions: Influenza, Adult Referrals: Maida Venegas HELMET COVERER [Primary Care Provider] - Forms: ED Department Discharge Additional Instructions: The following information is given to patients seen in the emergency department who are being discharged to home. This information is to outline your options for follow-up care. We provide all patients seen in our emergency department with a follow-up referral. The need for follow-up, as well as the timing and circumstances, are variable depending upon the specifics of your emergency department visit. If you don't have a primary care physician on staff, we will provide you with a referral. We always advise you to contact your personal physician following an emergency department visit to inform them of the circumstance of the visit and for follow-up with them and/or the need for any referrals to a consulting specialist. The emergency department will also refer you to a specialist when appropriate. This referral assures that you have the opportunity for follow-up care with a specialist. All of these measure are taken in an effort to provide you with optimal care, which includes your follow-up. Under all circumstances we always encourage you to contact your private physician who remains a resource for coordinating your care. When calling for follow-up care, please make the office aware that this follow-up is from your recent emergency room visit. If for any reason you are refused follow-up, please contact the [facility] Emergency Department at and asked to speak to the emergency department charge nurse. [facility] [address] [place] [address] [address] 1. Standard contact precautions (covering mouth while coughing, avoid sharing drinking cups and eating utensils). Please make sure you're doing good handwashing as this is contagious. 2. Please take the medications as directed. Phenergan with codeine will cause drowsiness, do not take while driving. 3. Supportive care measures such as Tylenol and/or ibuprofen for pain and fever management.Encourage small frequent sips of fluids to prevent dehydration. 4. Follow-up with your drain technician in the next 1-2 days. Return to the ED as needed and as discussed. Sepsis Event Note - Evaluation Sepsis Screening Result: No Definite Risk - Focused Exam Vital Signs: Vital Signs Temp Pulse Resp BP Pulse Ox 04/28/19 18:39 98.1 F 104 H 18 116/63 97 Date Exam was Performed: 04/28/19 Time Exam was Performed: 19:33 - My Orders Last 24 Hours: My Active Orders 04/28/19 18:33 Chest 2V [CR] Stat - Assessment/Plan Last 24 Hours: My Active Orders 04/28/19 18:33 Chest 2V [CR] Stat
--- NOTE | 2019-04-28 20:22 | CR ---
INDICATION: Cough, shortness of breath TECHNIQUE: Chest 2 views. COMPARISON: October 22, 2016 FINDINGS: Cardiovascular and mediastinum: Heart size and vasculature are normal in caliber and appearance. Mediastinum is within normal limits. Lungs and pleural spaces: Lungs are clear. No sign of infiltrate or mass. No sign of pleural effusion. No pneumothorax. Bones and soft tissues: No significant findings. IMPRESSION: No sign of acute disease. Dictated by Maranda Andrea MD @ Apr 28 2019 8:21PM Signed by Dr. Maranda Andrea @ Apr 28 2019 8:21PM
== END 2019-04-28 20:24 | disposition home or self-care (01) ==
LOC: MW.ED 18:29
DX: J10.1 Influenza due to other identified influenza virus with other respiratory manifestations (principal); Z88.0 Allergy status to penicillin; Z91.018 Allergy to other foods; Z91.041 Radiographic dye allergy status; Z88.1 Allergy status to other antibiotic agents
CPT/HCPCS: 71046; 71046-26; 87804; 99283; 99285-25

== ENCOUNTER 2020-09-24 21:20 | Emergency (ER) | payer SELFPAY ==
[2020-09-24] MEDS ORDERED: Albuterol 6.7 GM Inhaler INH ONE (21:48)
--- NOTE | 2020-09-24 21:51 | EDM.PDOC ---
ED HPI GENERAL MEDICAL PROBLEM - General Chief Complaint: Respiratory Problem Stated Complaint: COVID SYMPTOMS Time Seen by Provider: 09/24/20 21:28 - History of Present Illness INITIAL COMMENTS - FREE TEXT/NARRATIVE: History of present illness: [] The patient has 5 to 7 days of fever and body aches as well as headache. She developed a cough today and shortness of breath. She has a past history of asthma and uses an inhaler. She has not tried her inhaler today. She works and is busy running around at work. She does not have any children. She lives with her significant other. Review of systems: As per history of present illness and below otherwise all systems reviewed and negative. Past medical history: As per history of present illness and as reviewed below otherwise noncontributory. Surgical history: As per history of present illness and as reviewed below otherwise noncontributory. Social history: No reported history of drug or alcohol abuse. Family history: As per history of present illness and as reviewed below otherwise noncontributory. Physical exam: Constitutional - well developed, well-nourished and in no acute distress HEENT - normocephalic, no evidence of trauma - external nose and mouth normal - no mass in neck and no JVD - mucosae moist EYES - full EOM, PERRL, no icterus - no evidence of inflammation, injection, or drainage Respiratory - no respiratory distress, equal bilateral expansion, lungs clear to auscultation and no abnormal lung sounds. She has a troublesome cough but no obvious wheeze. There is no stridor. Cardiovascular - Regular Rhythm with S1 and S2 appreciated and no murmur, gallop or rub. GI - abdomen soft without distension or organomegaly - normal bowel sounds - no guard or rebound Musculoskeletal no gross deformity of long bones or joints - no tenderness, swelling or edema Neurologic - Alert and oriented times four - CN II-XII grossly intact - motor sensory and coordination symmetrically normal Psychiatric - appropriate mood and affect with normal thought content Hematologic - No petechiae or purpura - mucosa appropriate color and sclera not pale - normal nail bed color and refill Integument - no rash or evidence of trauma - normal turgor Diagnostics: [] Therapeutics: [] Impression: [] Plan: [] Definitive disposition and diagnosis as appropriate pending reevaluation and review of above. headache Pain Score (Numeric/FACES): 7 chest Pain Score (Numeric/FACES): 7 - Related Data Allergies Allergy/AdvReac Type Severity Reaction Status Date / Time amoxicillin [Amoxicillin] Allergy Difficulty Verified 04/28/19 18:42 Breathing Iodinated Contrast Media Allergy Anaphylactic Verified 09/24/20 21:35 [Iodinated Contrast Media - Shock IV Dye] mushroom Allergy Difficulty Verified 04/28/19 18:42 Breathing Penicillins Allergy Difficulty Verified 04/28/19 18:42 Breathing Home Meds: Home Meds Albuterol Sulfate [Albuterol Sulfate HFA] 2 puff INH Q6H PRN 09/24/20 [History] Past Medical History - Past Health History Medical/Surgical History: Denies Medical/Surgical History HEENT History: Reports: None Cardiovascular History: Reports: None Respiratory History: Reports: None Gastrointestinal History: Reports: None Genitourinary History: Reports: None 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 Musculoskeletal History: Reports: RA, Other (See Below) Other Musculoskeletal History: rheumatoid arthritis Neurological History: Reports: Migraines Psychiatric History: Reports: Anxiety Endocrine/Metabolic History: Reports: None Hematologic History: Reports: None Immunologic History: Reports: None Oncologic (Cancer) History: Reports: None Dermatologic History: Reports: None - Infectious Disease History Infectious Disease History: Reports: None - Past Surgical History HEENT Surgical History: Reports: Tonsillectomy Social & Family History - Family History Family Medical History: No Pertinent Family History - Caffeine Use Caffeine Use: Reports: Coffee, Soda ED ROS GENERAL - Review of Systems Review Of Systems: Comprehensive ROS is negative, except as noted in HPI. ED EXAM, GENERAL - Physical Exam Exam: See Below Free Text/Narrative:: My physical exam is in the HPI #1 Interpretation EKG Interpretation Comments: EKG done by protocol at 2152 hrs. shows a sinus rhythm with a heart rate of 87 and AR 115 and QT duration of 424. The axis is 30. The QRS and normal ST and T are normal. My impression this is not demonstrating any acute injury or ar rhythmia. Course - Vital Signs Text/Narrative:: 2301 hrs. patient markedly improved after inhaler. COVID-19 positive. X-ray clear. Patient's not hypoxic. Will be discharged in satisfactory condition. Last Recorded V/S: Last Vital Signs Temp 38.3 C H 05/10/21 21:26 Pulse 94 09/24/20 21:26 Resp 20 09/24/20 21:26 BP 116/78 09/24/20 21:26 Pulse Ox 100 09/24/20 21:26 - Orders/Labs/Meds Orders: Active Orders 24 hr Category Date Time Status RT Post Treatment Assessment [RC] Click to Edit Care 09/24/20 21:48 Active RT Pre-Treatment Assessment [RC] Click to Edit Care 09/24/20 21:48 Active Labs: Laboratory Tests 09/24/20 Range/Units 22:10 Influenza Type A RNA NEGATIVE (NEGATIVE) Influenza Type B RNA NEGATIVE (NEGATIVE) SARS-CoV-2 RNA (NANCY) POSITIVE H (NEGATIVE) Meds: Medications Discontinued Medications Generic Name Dose Route Start Last Admin Trade Name Andre PRN Reason Stop Dose Admin Albuterol 8 gm 09/24/20 21:48 09/24/20 22:05 Albuterol 6.7 Gm Inhaler INH 09/24/20 21:49 Not Given ONETIME ONE Albuterol Confirm 09/24/20 22:01 09/24/20 22:04 Albuterol 8 Gm Inhaler Administered 09/24/20 22:02 8 gm Dose Administration 8 gm INH .STK-MED ONE Departure - Departure Time of Disposition: 23:04 Disposition: Home, Self-Care 01 Condition: Good Clinical Impression: Bronchitis due to COVID-19 virus - Discharge Information Instructions: Acute Bronchitis, Adult, [id number], 10 Things You Can Do to Manage Your COVID-19 Symptoms at Home - CDC, COVID-19 Frequently Asked Questions Referrals: PCP,Not In Area [Primary Care Provider] - Forms: ED Department Discharge Additional Instructions: [facility] - Primary Care [address] [place] [id number] [facility] [address] [place] [id number] The following information is given to patients seen in the emergency department who are being discharged to home. This information is to outline your options for follow-up care. We provide all patients seen in our emergency department with a follow-up referral. The need for follow-up, as well as the timing and circumstances, are variable depending upon the specifics of your emergency department visit. If you don't have a primary care physician on staff, we will provide you with a referral. We always advise you to contact your personal physician following an emergency department visit to inform them of the circumstance of the visit and for follow-up with them and/or the need for any referrals to a consulting specialist. The emergency department will also refer you to a specialist when appropriate. This referral assures that you have the opportunity for follow-up care with a specialist. All of these measure are taken in an effort to provide you with optimal care, which includes your follow-up. Under all circumstances we always encourage you to contact your private physician who remains a resource for coordinating your care. When calling for follow-up care, please make the office aware that this follow-up is from your recent emergency room visit. If for any reason you are refused follow-up, please contact the [facility] Emergency Department at and asked to speak to the emergency department charge nurse. Sepsis Event Note (ED) - Evaluation Sepsis Screening Result: No Definite Risk - Focused Exam Vital Signs: Vital Signs Temp Pulse Resp BP Pulse Ox 09/24/20 21:26 38.3 C H 94 20 116/78 100 - My Orders Last 24 Hours: My Active Orders 09/24/20 21:48 RT Post Treatment Assessment [RC] Click to Edit RT Pre-Treatment Assessment [RC] Click to Edit - Assessment/Plan Last 24 Hours: My Active Orders 09/24/20 21:48 RT Post Treatment Assessment [RC] Click to Edit RT Pre-Treatment Assessment [RC] Click to Edit
[2020-09-24] MEDS ORDERED: Albuterol 8 GM Inhaler INH ONE (22:01)
--- NOTE | 2020-09-24 22:21 | CR ---
Indication: Cough and fever Technique: Chest 1 view Comparison: April 28, 2019 Findings/Impression: Cardiovascular and mediastinum: Heart size and vasculature are normal in caliber and appearance. Mediastinum is within normal limits. Lungs and pleural space: Lungs are clear. No sign of infiltrate or mass. No sign of pleural effusion. No pneumothorax. Bones and soft tissues: No significant findings. Dictated by Maranda Andrea MD @ 09/24/2020 10:19:[address] Maranda Andrea @ Sep 24 2020 10:19PM
[2020-09-24 22:53] LABS: CORONAVIRUS COVID-19 NAA POSITIVE (NEGATIVE); INFLUENZA A NAA NEGATIVE (NEGATIVE); INFLUENZA B NAA NEGATIVE (NEGATIVE)
[2020-09-25 00:25] VITALS: BP 119/73; PULSE 90
== END 2020-09-24 23:22 | disposition home or self-care (01) ==
LOC: MW.ED 21:20
DX: U07.1 COVID-19 (principal); J40 Bronchitis, not specified as acute or chronic; Z88.0 Allergy status to penicillin; Z91.041 Radiographic dye allergy status; Z91.018 Allergy to other foods
CPT/HCPCS: 0240U; 71045; 93005; 99285; A9270

== ENCOUNTER 2020-09-29 05:35 | Inpatient (IN) | payer SELFPAY ==
[2020-09-29] MEDS ORDERED: Sodium Chloride 0.9% 10 ML Syringe FLUSH PRN (06:03)
[2020-09-29] MEDS ORDERED: Sodium Chloride 0.9% 2.5 ML Syringe FLUSH PRN (06:03)
[2020-09-29] MEDS ORDERED: Dexamethasone 10 MG/ML SDV IVPUSH ONE (06:06)
[2020-09-29] MEDS ORDERED: Ketorolac 15 MG/ML SDV IVPUSH ONE (06:06)
[2020-09-29] MEDS ORDERED: Acetaminophen 500 MG Tab PO ONE (06:06)
[2020-09-29] MEDS ORDERED: Lactated Ringers 1,000 ML IV SCH (06:15)
--- NOTE | 2020-09-29 06:18 | EDM.PDOC ---
ED HPI GENERAL MEDICAL PROBLEM - General Chief Complaint: Respiratory Problem Stated Complaint: BREATHING PROBLEM Time Seen by Provider: 09/29/20 05:53 - History of Present Illness INITIAL COMMENTS - FREE TEXT/NARRATIVE: HISTORY AND PHYSICAL: History of present illness: This is a 24-year-old female with history significant for asthma, rheumatoid arthritis (currently not on any medications), fibromyalgia as well as a recent diagnosis of coronavirus on September 24 documented here at [facility], who presents ER today secondary to increasing shortness of breath, persistent fevers, diffuse myalgias, nonproductive cough, sore throat that is been progressively getting worse since her diagnosis. Patient reports that she lives with her significant other who has no immunocompromised concerns. Patient reports that she has not been diagnosed with coronavirus in the past nor has she received the coronavirus vaccination. Patient reports that she works as a [employer]. Patient admits to tactile fevers. Patient denies any abdominal pain. Patient reports she has had nausea with no vomiting or diarrhea. Patient denies any dysuria, frequency, urgency. Patient denies any productive cough. Patient denies any hemoptysis. Patient denies any calf swelling or edema. Patient is currently not on any control pills and has not had a history for PE or DVT in the past. Review of systems: As per history of present illness and below otherwise all systems reviewed and negative. Past medical history: As per history of present illness and as reviewed below otherwise noncontributory. Surgical history: As per history of present illness and as reviewed below otherwise noncontributory. Social history: No reported history of drug abuse. Family history: As per history of present illness and as reviewed below otherwise noncontributory. Physical exam: This patient was seen and evaluated during the 2019 SARS-CoV-2 novel coronavirus pandemic period. Community viral transmission is ongoing at time of this encounter and the emergency department is operating under pandemic response procedures. Constitutional: Patient is oriented to person, place, and time. Appears well- developed and well-nourished. No distress. HEENT: Moist mucous membranes, oropharynx mildly erythematous with no exudates. Patient has no stridor. Patient appears to be in no respiratory distress but is slightly is hypnic. Patient's panic membranes are pearly rendon with no bulging or fluid. Neck supple, no nuchal rigidity, no photophobia, no Kernig's sign or Brudzinski sign, patient does not present with signs or symptoms of be consistent with meningitis. Head: Normocephalic and atraumatic Eyes: Right eye exhibits no discharge. Left eye exhibits no discharge. No scleral icterus Neck: Normal range of motion. No tracheal deviation present. Cardiovascular: Tachycardic rate at 110 bpm and regular rhythm. Pulmonary: Effort normal, tachypneic with slightly increased work of breathing with persistent coughing with a deep inspiration. Patient has slight end expiratory wheezing. Abdominal: No distention Musculoskeletal: Normal range of motion. No calf tenderness. No peripheral edema. Negative Homans' sign. Neurologic: Alert and oriented to person, place and time. Skin: [place], warm and dry. Psychiatric: Normal mood and affect. Behavior is normal. Judgment and thought content normal. Nursing note and vital signs have been reviewed Diagnostics: Chest Xray: Normal cardiac silhouette No infiltrates or effusions identified. No PTX No evidence of acute bony fracture. As interpreted by ER MD: Nelly CBC, CMP, D-dimer, lactic acid, blood cultures x2 UA/U EKG Pulse ox: 86 to 92% on room air: Hypoxic Therapeutics: LR x1 L wide open Toradol 15 mg IV Acetaminophen 1 g p.o. Decadron 10 mg IV Albuterol MDI x2 puffs Assessment and plan: This is a 24-year-old female with a recent diagnosis of coronavirus approximately 5 days ago with symptoms starting approximately 10 days ago. Patient presents ER today secondary to increasing shortness of breath, persistent fever, body aches. Patient's pulse ox here in the ED has been fluctuating between 86 to 92% on room air. Patient does have a history of asthma and has been utilizing her albuterol MDIs at home. Patient be given a dose of albuterol MDI here in the ED. Patient also get started on Decadron 2 mg IV as her pulse oximeter has been pulse oxing between 86 to 92% on room air and patient will likely need to be admitted. Patient will have labs drawn and we will evaluate the patient's chest x-ray. At this time patient will be started on supplemental O2. Although patient will likely need admission, I do not believe that the patient this time will require IPPV. Differential diagnosis includes but is not limited to: CHF, ACS, PE, pneumonia, pneumothorax, asthma exacerbation, COPD exacerbation, pleural effusion, pericardial effusion, pericarditis, viral URI, influenza, bronchitis, airway foreign body, anxiety state, and many others. Definitive disposition and diagnosis as appropriate pending reevaluation and review of above. throat Pain Score (Numeric/FACES): 4 - Related Data Allergies Allergy/AdvReac Type Severity Reaction Status Date / Time amoxicillin [Amoxicillin] Allergy Difficulty Verified 09/29/20 05:45 Breathing Iodinated Contrast Media Allergy Anaphylactic Verified 09/29/20 05:45 [Iodinated Contrast Media - Shock IV Dye] mushroom Allergy Difficulty Verified 09/29/20 05:45 Breathing Penicillins Allergy Difficulty Verified 09/29/20 05:45 Breathing Home Meds: Home Meds Albuterol Sulfate [Albuterol Sulfate HFA] 2 puff INH Q6H PRN 09/24/20 [History] Past Medical History - Past Health History Medical/Surgical History: Denies Medical/Surgical History HEENT History: Reports: None Cardiovascular History: Reports: None Respiratory History: Reports: Asthma Gastrointestinal History: Reports: None Genitourinary History: Reports: None ADULT DAYCARE COORDINATOR History: Reports: None Musculoskeletal History: Reports: RA, Other (See Below) Other Musculoskeletal History: rheumatoid arthritis Neurological History: Reports: Migraines Psychiatric History: Reports: Anxiety Endocrine/Metabolic History: Reports: None Hematologic History: Reports: None Immunologic History: Reports: None Oncologic (Cancer) History: Reports: None Dermatologic History: Reports: None - Infectious Disease History Infectious Disease History: Reports: None - Past Surgical History HEENT Surgical History: Reports: Tonsillectomy Respiratory Surgical History: Reports: None Neurological Surgical History: Reports: None Musculoskeletal Surgical History: Reports: None Social & Family History - Family History Family Medical History: No Pertinent Family History - Caffeine Use Caffeine Use: Reports: None - Recreational Drug Use Recreational Drug Use: No ED ROS GENERAL - Review of Systems Review Of Systems: See Below ED EXAM, GENERAL - Physical Exam Exam: See Below Course - Vital Signs Last Recorded V/S: Last Vital Signs Temp 98.6 F 09/29/20 06:58 Pulse 97 09/29/20 06:58 Resp 22 H 09/29/20 06:58 BP 104/55 L 09/29/20 06:58 Pulse Ox 90 L 09/29/20 06:58 - Orders/Labs/Meds Orders: Active Orders 24 hr Category Date Time Status Patient Status [ADT] Routine ADT 09/29/20 07:14 Ordered Blood Pressure Mgt: Sepsis [RC] Q15MX2 Care 09/29/20 06:06 Active Oxygen Therapy Adult [Oxygen Therapy, ED] [] Care 09/29/20 06:53 Active ASDIRECTED Chest 1V Frontal [CR] Stat Exams 09/29/20 06:03 Taken BILIRUBIN DIRECT [CHEM] DAILY Lab 09/30/20 07:15 Ordered BILIRUBIN DIRECT [CHEM] DAILY Lab 10/01/20 07:15 Ordered BILIRUBIN DIRECT [CHEM] DAILY Lab 10/02/20 07:15 Ordered BILIRUBIN DIRECT [CHEM] DAILY Lab 10/03/20 07:15 Ordered COMPREHENSIVE METABOLIC PN,CMP [CHEM] DAILY Lab 09/30/20 07:15 Ordered COMPREHENSIVE METABOLIC PN,CMP [CHEM] DAILY Lab 10/01/20 07:15 Ordered COMPREHENSIVE METABOLIC PN,CMP [CHEM] DAILY Lab 10/02/20 07:15 Ordered COMPREHENSIVE METABOLIC PN,CMP [CHEM] DAILY Lab 10/03/20 07:15 Ordered CULTURE BLOOD [BC] Stat Lab 09/29/20 06:26 Received CULTURE BLOOD [BC] Stat Lab 09/29/20 06:37 Received HCG QUALITATIVE,URINE [URCHEM] Stat Lab 09/29/20 06:07 Ordered UA W/MICROSCOPIC [URIN] Stat Lab 09/29/20 06:04 Ordered Lactated Ringers [Ringers, Lactated] 1,000 ml Med 09/29/20 06:15 Active IV ASDIRECTED Sodium Chloride 0.9% [Saline Flush] Med 09/29/20 06:03 Active 10 ml FLUSH ASDIRECTED PRN Sodium Chloride 0.9% [Saline Flush] Med 09/29/20 06:03 Active 2.5 ml FLUSH ASDIRECTED PRN Blood Culture x2 Reflex Set [OM.PC] Stat Oth 09/29/20 06:04 Ordered Saline Lock Insert [OM.PC] Stat Oth 09/29/20 06:04 Ordered Severe Sepsis Onset Time [OM.PC] Stat Oth 09/29/20 06:04 Ordered Medication Orders Lactated Ringer's (Ringers, Lactated) 1,000 mls @ 999 mls/hr IV ASDIRECTED RPEM Last Admin: 09/29/20 06:11 Dose: 999 mls/hr Documented by: MICHELL Sodium Chloride (Sodium Chloride 0.9% 10 Ml Syringe) 10 ml FLUSH ASDIRECTED PRN PRN Reason: Keep Vein Open Last Admin: 09/29/20 06:11 Dose: 10 ml Documented by: MICHELL Sodium Chloride (Sodium Chloride 0.9% 2.5 Ml Syringe) 2.5 ml FLUSH ASDIRECTED PRN PRN Reason: Keep Vein Open Last Admin: 09/29/20 06:11 Dose: 2.5 ml Documented by: MICHELL Labs: Laboratory Tests 09/29/20 09/29/20 09/29/20 Range/Units 06:26 06:26 06:26 WBC 3.73 L (4.0-11.0) K/uL RBC 4.58 (4.30-5.90) M/uL Hgb 13.8 (12.0-16.0) g/dL Hct 40.8 (36.0-46.0) % MCV 89.1 (80.0-98.0) fL MCH 30.1 (27.0-32.0) pg MCHC 33.8 (31.0-37.0) g/dL RDW Std Deviation 43.9 (28.0-62.0) fl RDW Coeff of John 13 (11.0-15.0) % Plt Count 157 (150-400) K/uL MPV 10.00 (7.40-12.00) fL Neut % (Auto) 65.6 (48.0-80.0) % Lymph % (Auto) 27.1 (16.0-40.0) % [place] % (Auto) 7.0 (0.0-15.0) % Eos % (Auto) 0.0 (0.0-7.0) % Baso % (Auto) 0.3 (0.0-1.5) % Neut # (Auto) 2.5 (1.4-5.7) K/uL Lymph # (Auto) 1.0 (0.6-2.4) K/uL [place] # (Auto) 0.3 (0.0-0.8) K/uL Eos # (Auto) 0.0 (0.0-0.7) K/uL Baso # (Auto) 0.0 (0.0-0.1) K/uL Nucleated RBC % 0.0 /100WBC Nucleated RBCs # 0 K/uL D-Dimer, Quantitative (0.0-0.50) mg/L FEU Lactate 0.7 (0.20-2.00) mmol/L Sodium 139 (136-145) mmol/L Potassium 3.5 (3.5-5.1) mmol/L Chloride 102 (98-107) mmol/L Carbon Dioxide 24.0 (21.0-32.0) mmol/L BUN 9 (7.0-18.0) mg/dL Creatinine 1.0 (0.6-1.0) mg/dL Est Cr Clr Drug Dosing 86.00 mL/min Estimated GFR (MDRD) > 60.0 ml/min Glucose 104 (74-106) mg/dL Calcium 7.8 L (8.5-10.1) mg/dL Total Bilirubin 0.3 (0.2-1.0) mg/dL AST 30 (15-37) IU/L ALT 33 (14-63) IU/L Alkaline Phosphatase 55 (46-116) U/L Total Protein 7.6 (6.4-8.2) g/dL Albumin 3.6 (3.4-5.0) g/dL Globulin 4.0 (2.6-4.0) g/dL Albumin/Globulin Ratio 0.9 (0.9-1.6) 09/29/20 Range/Units 06:26 WBC (4.0-11.0) K/uL RBC (4.30-5.90) M/uL Hgb (12.0-16.0) g/dL Hct (36.0-46.0) % MCV (80.0-98.0) fL MCH (27.0-32.0) pg MCHC (31.0-37.0) g/dL RDW Std Deviation (28.0-62.0) fl RDW Coeff of Ojhn (11.0-15.0) % Plt Count (150-400) K/uL MPV (7.40-12.00) fL Neut % (Auto) (48.0-80.0) % Lymph % (Auto) (16.0-40.0) % [place] % (Auto) (0.0-15.0) % Eos % (Auto) (0.0-7.0) % Baso % (Auto) (0.0-1.5) % Neut # (Auto) (1.4-5.7) K/uL Lymph # (Auto) (0.6-2.4) K/uL [place] # (Auto) (0.0-0.8) K/uL Eos # (Auto) (0.0-0.7) K/uL Baso # (Auto) (0.0-0.1) K/uL Nucleated RBC % /100WBC Nucleated RBCs # K/uL D-Dimer, Quantitative 0.44 (0.0-0.50) mg/L FEU Lactate (0.20-2.00) mmol/L Sodium (136-145) mmol/L Potassium (3.5-5.1) mmol/L Chloride (98-107) mmol/L Carbon Dioxide (21.0-32.0) mmol/L BUN (7.0-18.0) mg/dL Creatinine (0.6-1.0) mg/dL Est Cr Clr Drug Dosing mL/min Estimated GFR (MDRD) ml/min Glucose (74-106) mg/dL Calcium (8.5-10.1) mg/dL Total Bilirubin (0.2-1.0) mg/dL AST (15-37) IU/L ALT (14-63) IU/L Alkaline Phosphatase (46-116) U/L Total Protein (6.4-8.2) g/dL Albumin (3.4-5.0) g/dL Globulin (2.6-4.0) g/dL Albumin/Globulin Ratio (0.9-1.6) Meds: Medications Generic Name Dose Route Start Last Admin Trade Name Freq PRN Reason Stop Dose Admin Lactated Ringer's 1,000 mls @ 999 mls/hr 09/29/20 06:15 09/29/20 06:11 Ringers, Lactated IV 999 mls/hr ASDIRECTED PREM Administration Sodium Chloride 10 ml 09/29/20 06:03 09/29/20 06:11 Sodium Chloride 0.9% 10 Ml Syringe FLUSH 10 ml ASDIRECTED PRN Administration Keep Vein Open Sodium Chloride 2.5 ml 09/29/20 06:03 09/29/20 06:11 Sodium Chloride 0.9% 2.5 Ml Syringe FLUSH 2.5 ml ASDIRECTED PRN Administration Keep Vein Open Discontinued Medications Generic Name Dose Route Start Last Admin Trade Name Andre PRN Reason Stop Dose Admin Acetaminophen 1,000 mg 09/29/20 06:06 09/29/20 06:14 Acetaminophen 500 Mg Tab PO 09/29/20 06:07 1,000 mg ONETIME ONE Administration Albuterol Confirm 09/29/20 06:47 09/29/20 06:55 Albuterol 8 Gm Inhaler Administered 09/29/20 06:48 2 puff Dose Administration 8 gm INH .STK-MED ONE Dexamethasone 10 mg 09/29/20 06:06 09/29/20 06:14 Dexamethasone 10 Mg/Ml Sdv IVPUSH 09/29/20 06:07 10 mg ONETIME ONE Administration Remdesivir 200 mg/ Sodium 250 mls @ 250 mls/hr 09/29/20 07:02 Chloride IV 09/29/20 07:03 ONETIME ONE Ketorolac Tromethamine 15 mg 09/29/20 06:06 09/29/20 06:14 Ketorolac 15 Mg/Ml Sdv IVPUSH 09/29/20 06:07 15 mg ONETIME ONE Administration Departure - Departure Time of Disposition: 07:15 Disposition: Admitted As Inpatient 64 Condition: Good Clinical Impression: Pneumonia due to 2019 novel coronavirus Respiratory failure with hypoxia Qualifiers: Chronicity: acute Qualified Code(s): J96.01 - Acute respiratory failure with hypoxia - Discharge Information Referrals: PCP,None [Primary Care Provider] - Forms: ED Department Discharge Sepsis Event Note (ED) - Evaluation Sepsis Screening Result: No Definite Risk - Focused Exam Vital Signs: Vital Signs Temp Temp Pulse Resp BP Pulse Ox Pulse Ox 09/29/20 06:58 98.6 F 97 22 H 104/55 L 90 L 09/29/20 06:44 98.6 F 09/29/20 06:31 22 H 94 L 94 L 09/29/20 06:30 22 H 88 L 09/29/20 06:26 101/62 09/29/20 06:14 101 F H 09/29/20 05:42 101 F H 94 16 113/68 92 L - My Orders Last 24 Hours: My Active Orders 09/29/20 06:03 Chest 1V Frontal [CR] Stat Sodium Chloride 0.9% [Saline Flush] 10 ml FLUSH ASDIRECTED PRN Sodium Chloride 0.9% [Saline Flush] 2.5 ml FLUSH ASDIRECTED PRN 09/29/20 06:04 UA W/MICROSCOPIC [URIN] Stat Blood Culture x2 Reflex Set [OM.PC] Stat Saline Lock Insert [OM.PC] Stat Severe Sepsis Onset Time [OM.PC] Stat 09/29/20 06:06 Blood Pressure Mgt: Sepsis [RC] Q15MX2 09/29/20 06:07 HCG QUALITATIVE,URINE [URCHEM] Stat 09/29/20 06:15 Lactated Ringers [Ringers, Lactated] 1,000 ml IV ASDIRECTED 09/29/20 06:26 CULTURE BLOOD [BC] Stat 09/29/20 06:37 CULTURE BLOOD [BC] Stat 09/29/20 06:53 Oxygen Therapy Adult [Oxygen Therapy, ED] [RC] ASDIRECTED 09/29/20 07:14 Patient Status [ADT] Routine 09/30/20 07:15 BILIRUBIN DIRECT [CHEM] DAILY COMPREHENSIVE METABOLIC PN,CMP [CHEM] DAILY 10/01/20 07:15 BILIRUBIN DIRECT [CHEM] DAILY COMPREHENSIVE METABOLIC PN,CMP [CHEM] DAILY 10/02/20 07:15 BILIRUBIN DIRECT [CHEM] DAILY COMPREHENSIVE METABOLIC PN,CMP [CHEM] DAILY 10/03/20 07:15 BILIRUBIN DIRECT [CHEM] DAILY COMPREHENSIVE METABOLIC PN,CMP [CHEM] DAILY - Assessment/Plan Last 24 Hours: My Active Orders 09/29/20 06:03 Chest 1V Frontal [CR] Stat Sodium Chloride 0.9% [Saline Flush] 10 ml FLUSH ASDIRECTED PRN Sodium Chloride 0.9% [Saline Flush] 2.5 ml FLUSH ASDIRECTED PRN 09/29/20 06:04 UA W/MICROSCOPIC [URIN] Stat Blood Culture x2 Reflex Set [OM.PC] Stat Saline Lock Insert [OM.PC] Stat Severe Sepsis Onset Time [OM.PC] Stat 09/29/20 06:06 Blood Pressure Mgt: Sepsis [RC] Q15MX2 09/29/20 06:07 HCG QUALITATIVE,URINE [URCHEM] Stat 09/29/20 06:15 Lactated Ringers [Ringers, Lactated] 1,000 ml IV ASDIRECTED 09/29/20 06:26 CULTURE BLOOD [BC] Stat 09/29/20 06:37 CULTURE BLOOD [BC] Stat 09/29/20 06:53 Oxygen Therapy Adult [Oxygen Therapy, ED] [RC] ASDIRECTED 09/29/20 07:14 Patient Status [ADT] Routine 09/30/20 07:15 BILIRUBIN DIRECT [CHEM] DAILY COMPREHENSIVE METABOLIC PN,CMP [CHEM] DAILY 10/01/20 07:15 BILIRUBIN DIRECT [CHEM] DAILY COMPREHENSIVE METABOLIC PN,CMP [CHEM] DAILY 10/02/20 07:15 BILIRUBIN DIRECT [CHEM] DAILY COMPREHENSIVE METABOLIC PN,CMP [CHEM] DAILY 10/03/20 07:15 BILIRUBIN DIRECT [CHEM] DAILY COMPREHENSIVE METABOLIC PN,CMP [CHEM] DAILY
[2020-09-29] MEDS ORDERED: Albuterol 8 GM Inhaler INH ONE (06:47)
[2020-09-29 06:52] LABS: BLOOD UREA NITROGEN,BUN 9 mg/dL (7.0-18.0); CHLORIDE,CL 102 mmol/L (98-107); GLUCOSE RANDOM 104 mg/dL (74-106); POTASSIUM,K 3.5 mmol/L (3.5-5.1); SODIUM,NA 139 mmol/L (136-145)
[2020-09-29] MEDS ORDERED: REMDESIVIR 200 MG in Sodium Chloride 0.9% 250 ML IV ONE (07:02)
--- NOTE | 2020-09-29 07:20 | CR ---
Indication: COVID, hypoxia and cough. Technique: Chest 1 view Comparison: Chest x-ray 09/24/2020 Findings/Impression: Cardiovascular and mediastinum: Heart size and vasculature are normal in caliber and appearance. Lungs and pleural space: No pleural effusion or pneumothorax. Interval development of patchy opacity in the right lung base consistent with COVID pneumonia in this setting. Bones and soft tissues: No acute findings. Dictated by Kyle Chavez MD @ 09/29/2020 7:19:[address] Kyle Chavez @ Sep 29 2020 7:19AM
[2020-09-29] MEDS ORDERED: Pneumococcal 23-Valent Conjugate Vaccine 0.5 ML Syringe IM ONE (10:31)
--- NOTE | 2020-09-29 11:37 | PCM.HP.2 ---
H&P History of Present Illness - General Date of Service: 09/29/20 Admit Problem/Dx: Admission Diagnosis/Problem Admission Diagnosis/Problem Hypoxia - History of Present Illness Initial Comments - Free Text/Narative: Patient a 24-year-old female with history significant for asthma, rheumatoid arthritis diagnosed when 12 y/o, (currently not on any medications), fibromyalgia as well as a recent diagnosis of coronavirus on September 24 who presents ER today secondary to increasing shortness of breath, persistent fever s, diffuse myalgias, nonproductive cough, sore throat that is been progressively getting worse since her diagnosis. Patient has not received the coronavirus vaccination. Patient reports she has had nausea with no vomiting or diarrhea. Patient denies any dysuria, frequency, urgency. Patient denies any productive cough. Patient denies any hemoptysis. Patient denies any calf swelling or edema. Patient is currently not on any control pills and has not had a history for PE or DVT in the past. In the ER patient was found to be hypoxic in mid 80s, started on 2L ts on NC which imrpoevd her oxygen stats to 92%, patient ended up needing 4 Lts in next few hours, she was started on IV remdesidvir, IV dexamethasone, CXR showed patchy opacity in right lung base, Patient was admitted for further management throat Pain Score (Numeric/FACES): 4 - Related Data Allergies/Adverse Reactions: Allergies Allergy/AdvReac Type Severity Reaction Status Date / Time amoxicillin [Amoxicillin] Allergy Difficulty Verified 09/29/20 05:45 Breathing Iodinated Contrast Media Allergy Anaphylactic Verified 09/29/20 05:45 [Iodinated Contrast Media - Shock IV Dye] mushroom Allergy Difficulty Verified 09/29/20 05:45 Breathing Penicillins Allergy Difficulty Verified 09/29/20 05:45 Breathing Home Medications: Home Meds Albuterol Sulfate [Albuterol Sulfate HFA] 2 puff INH Q6H PRN 09/24/20 [History] Past Medical History - Past Health History Medical/Surgical History: Denies Medical/Surgical History HEENT History: Reports: None, Impaired Vision Other HEENT History: Corrected vision with glasses. Cardiovascular History: Reports: None Respiratory History: Reports: Asthma Gastrointestinal History: Reports: None Genitourinary History: Reports: None [employer] History: Reports: None Musculoskeletal History: Reports: Fibromyalgia, RA, Other (See Below) Other Musculoskeletal History: rheumatoid arthritis Neurological History: Reports: Migraines Psychiatric History: Reports: Anxiety Endocrine/Metabolic History: Reports: None Hematologic History: Reports: None Immunologic History: Reports: None Oncologic (Cancer) History: Reports: None Dermatologic History: Reports: None - Infectious Disease History Infectious Disease History: Reports: Novel Coronavirus - Past Surgical History HEENT Surgical History: Reports: Adenoidectomy, Tonsillectomy Respiratory Surgical History: Reports: None Neurological Surgical History: Reports: None Musculoskeletal Surgical History: Reports: None Social & Family History - Family History Family Medical History: No Pertinent Family History Cardiac: Reports: Hypertension Other Cardiac Family History: Paternal grandfather Endocrine/Metabolic: Reports: Diabetes, Type I Other Endocrine/Metabolic Family History: Mother and sister both have Type I - Tobacco Use Tobacco Use Status *Q: Former Tobacco User Years of Tobacco use: 0 Used Tobacco, but Quit: Yes Month/Year Tobacco Last Used: 05/2014 Tobacco Use Comment: Only smoked for 2 months. Second Hand Smoke Exposure: No - Caffeine Use Caffeine Use: Reports: Coffee, Soda Caffeine Use Comment: one drink per day - Alcohol Use Days Per Week of Alcohol Use: 1 Number of Drinks Per Day: 0 Total Drinks Per Week: 0 - Recreational Drug Use Recreational Drug Use: No H&P Review of Systems - Review of Systems: Review Of Systems: See Below General: Reports: Chills, Malaise, Weakness. Denies: Fever Pulmonary: Reports: Shortness of Breath, Cough. Denies: Hemoptysis Cardiovascular: Reports: Dyspnea on Exertion. Denies: Chest Pain, Palpitations, Orthopnea Gastrointestinal: Reports: Anorexia, Decreased Appetite, Nausea. Denies: Abdominal Pain, Black Stool, Vomiting Genitourinary: Denies: Dysuria, Frequency, Burning, Pain Musculoskeletal: Denies: Neck Pain, Shoulder Pain, Arm Pain, Back Pain Skin: Denies: Cyanosis, Jaundice, Mottled, Pallor Psychiatric: Denies: Confusion, Depression, Mood Lability, Anxiety Neurological: Denies: Confusion, Dizziness, Headache, Numbness Exam - Exam Exam: See Below - Vital Signs Vital Signs: Last Vital Signs Temp 37.0 C 09/29/20 06:58 Pulse 85 09/29/20 08:45 Resp 18 09/29/20 08:45 BP 103/54 L 09/29/20 08:45 Pulse Ox 96 09/29/20 08:45 Weight: 97.976 kg - Exam General: Alert, Oriented, Cooperative, Mild Distress Neck: Supple, Trachea Midline Lungs: Normal Respiratory Effort, Decreased Breath Sounds, Crackles, Rales Cardiovascular: Regular Rate, Regular Rhythm, Normal S1, Normal S2 GI/Abdominal Exam: Normal Bowel Sounds, Soft, Non-Tender Back Exam: Normal Inspection Extremities: Normal Inspection, Normal Range of Motion - Patient Data Lab Results Last 24 hrs: Laboratory Results - last 24 hr 09/29/20 09/29/20 09/29/20 Range/Units 06:26 06:26 06:26 WBC 3.73 L (4.0-11.0) K/uL RBC 4.58 (4.30-5.90) M/uL Hgb 13.8 (12.0-16.0) g/dL Hct 40.8 (36.0-46.0) % MCV 89.1 (80.0-98.0) fL MCH 30.1 (27.0-32.0) pg MCHC 33.8 (31.0-37.0) g/dL RDW Std Deviation 43.9 (28.0-62.0) fl RDW Coeff of John 13 (11.0-15.0) % Plt Count 157 (150-400) K/uL MPV 10.00 (7.40-12.00) fL Neut % (Auto) 65.6 (48.0-80.0) % Lymph % (Auto) 27.1 (16.0-40.0) % [place] % (Auto) 7.0 (0.0-15.0) % Eos % (Auto) 0.0 (0.0-7.0) % Baso % (Auto) 0.3 (0.0-1.5) % Neut # (Auto) 2.5 (1.4-5.7) K/uL Lymph # (Auto) 1.0 (0.6-2.4) K/uL [place] # (Auto) 0.3 (0.0-0.8) K/uL Eos # (Auto) 0.0 (0.0-0.7) K/uL Baso # (Auto) 0.0 (0.0-0.1) K/uL Nucleated RBC % 0.0 /100WBC Nucleated RBCs # 0 K/uL D-Dimer, Quantitative (0.0-0.50) mg/L FEU Lactate 0.7 (0.20-2.00) mmol/L Sodium 139 (136-145) mmol/L Potassium 3.5 (3.5-5.1) mmol/L Chloride 102 (98-107) mmol/L Carbon Dioxide 24.0 (21.0-32.0) mmol/L BUN 9 (7.0-18.0) mg/dL Creatinine 1.0 (0.6-1.0) mg/dL Est Cr Clr Drug Dosing 86.00 mL/min Estimated GFR (MDRD) > 60.0 ml/min Glucose 104 (74-106) mg/dL Calcium 7.8 L (8.5-10.1) mg/dL Total Bilirubin 0.3 (0.2-1.0) mg/dL AST 30 (15-37) IU/L ALT 33 (14-63) IU/L Alkaline Phosphatase 55 (46-116) U/L Total Protein 7.6 (6.4-8.2) g/dL Albumin 3.6 (3.4-5.0) g/dL Globulin 4.0 (2.6-4.0) g/dL Albumin/Globulin Ratio 0.9 (0.9-1.6) Urine Color Urine Appearance Urine pH (5.0-8.0) Ur Specific [place] (1.001-1.035) Urine Protein (NEGATIVE) mg/dL Urine Glucose (UA) (NEGATIVE) mg/dL Urine Ketones (NEGATIVE) mg/dL Urine Occult Blood (NEGATIVE) Urine Nitrite (NEGATIVE) Urine Bilirubin (NEGATIVE) Urine Ictotest Urine Urobilinogen (<2.0) EU/dL Ur Leukocyte Esterase (NEGATIVE) Urine RBC (0-2/HPF) Urine WBC (0-5/HPF) Ur Epithelial Cells (NONE-FEW) Urine Bacteria (NEGATIVE) Urine Mucus (NONE-MOD) Urine HCG, Qual (NEGATIVE) 09/29/20 09/29/20 09/29/20 Range/Units 06:26 07:00 07:00 WBC (4.0-11.0) K/uL RBC (4.30-5.90) M/uL Hgb (12.0-16.0) g/dL Hct (36.0-46.0) % MCV (80.0-98.0) fL MCH (27.0-32.0) pg MCHC (31.0-37.0) g/dL RDW Std Deviation (28.0-62.0) fl RDW Coeff of John (11.0-15.0) % Plt Count (150-400) K/uL MPV (7.40-12.00) fL Neut % (Auto) (48.0-80.0) % Lymph % (Auto) (16.0-40.0) % [place] % (Auto) (0.0-15.0) % Eos % (Auto) (0.0-7.0) % Baso % (Auto) (0.0-1.5) % Neut # (Auto) (1.4-5.7) K/uL Lymph # (Auto) (0.6-2.4) K/uL [place] # (Auto) (0.0-0.8) K/uL Eos # (Auto) (0.0-0.7) K/uL Baso # (Auto) (0.0-0.1) K/uL Nucleated RBC % /100WBC Nucleated RBCs # K/uL D-Dimer, Quantitative 0.44 (0.0-0.50) mg/L FEU Lactate (0.20-2.00) mmol/L Sodium (136-145) mmol/L Potassium (3.5-5.1) mmol/L Chloride (98-107) mmol/L Carbon Dioxide (21.0-32.0) mmol/L BUN (7.0-18.0) mg/dL Creatinine (0.6-1.0) mg/dL Est Cr Clr Drug Dosing mL/min Estimated GFR (MDRD) ml/min Glucose (74-106) mg/dL Calcium (8.5-10.1) mg/dL Total Bilirubin (0.2-1.0) mg/dL AST (15-37) IU/L ALT (14-63) IU/L Alkaline Phosphatase (46-116) U/L Total Protein (6.4-8.2) g/dL Albumin (3.4-5.0) g/dL Globulin (2.6-4.0) g/dL Albumin/Globulin Ratio (0.9-1.6) Urine Color YELLOW Urine Appearance SLT CLOUDY Urine pH 6.0 (5.0-8.0) Ur Specific [place] 1.025 (1.001-1.035) Urine Protein 30 H (NEGATIVE) mg/dL Urine Glucose (UA) NEGATIVE (NEGATIVE) mg/dL Urine Ketones >=80 (NEGATIVE) mg/dL Urine Occult Blood NEGATIVE (NEGATIVE) Urine Nitrite NEGATIVE (NEGATIVE) Urine Bilirubin SMALL H (NEGATIVE) Urine Ictotest NEGATIVE Urine Urobilinogen 4.0 H (<2.0) EU/dL Ur Leukocyte Esterase NEGATIVE (NEGATIVE) Urine RBC 0-2 (0-2/HPF) Urine WBC 0-2 (0-5/HPF) Ur Epithelial Cells MODERATE (NONE-FEW) Urine Bacteria FEW (NEGATIVE) Urine Mucus LIGHT (NONE-MOD) Urine HCG, Qual NEGATIVE (NEGATIVE) Result Diagrams: 09/29/20 06:26 09/29/20 06:26 Sepsis Event Note - Evaluation Sepsis Screening Result: Sepsis Risk - Focused Exam Vital Signs: Vital Signs Temp Temp Pulse Resp BP Pulse Ox Pulse Ox 09/29/20 08:45 85 18 103/54 L 96 09/29/20 08:30 85 19 103/50 L 90 L 09/29/20 08:10 90 L 09/29/20 07:45 91 19 93/55 L 92 L 09/29/20 06:58 37.0 C 97 22 H 104/55 L 90 L 09/29/20 06:44 37.0 C 09/29/20 06:31 22 H 94 L 94 L 09/29/20 06:30 22 H 88 L 09/29/20 06:26 101/62 09/29/20 06:14 38.3 C H 09/29/20 05:42 38.3 C H 94 16 113/68 92 L - Problem List (1) Pneumonia due to 2019 novel coronavirus SNOMED Code(s): 660516520940279259 ICD Code: U07.1 - COVID-19; J12.82 - PNEUMONIA DUE TO CORONAVIRUS DISEASE 2019 Status: Acute Current Visit: Yes (2) Respiratory failure with hypoxia SNOMED Code(s): 96930692477763316 ICD Code: J96.91 - RESPIRATORY FAILURE, UNSPECIFIED WITH HYPOXIA Status: Acute Current Visit: Yes Qualifiers: Chronicity: acute Qualified Code(s): J96.01 - Acute respiratory failure with hypoxia (3) Arthritis, rheumatoid SNOMED Code(s): 39198646 ICD Code: M06.9 - RHEUMATOID ARTHRITIS, UNSPECIFIED Status: Acute Current Visit: Yes Problem List Initiated/Reviewed/Updated: Yes Orders Last 24hrs: Active Orders 24 hr Category Date Time Status Patient Status [ADT] Routine ADT 09/29/20 07:14 Active Blood Pressure Mgt: Sepsis [RC] [id number] Care 09/29/20 06:06 Active Oxygen Therapy [RC] PRN Care 09/29/20 08:29 Active RT Post Treatment Assessment [RC] Click to Edit Care 09/29/20 08:31 Active RT Pre-Treatment Assessment [RC] Click to Edit Care 09/29/20 08:31 Active Telemetry Monitoring [Cardiac Monitoring] [RC] . Care 09/29/20 10:00 Active DIRECTED Vital Signs [RC] Q4H Care 09/29/20 08:29 Active Clear Liquid Diet [DIET] Diet 09/29/20 Lunch Active BILIRUBIN DIRECT [CHEM] DAILY Lab 09/30/20 07:15 Ordered BILIRUBIN DIRECT [CHEM] DAILY Lab 10/01/20 07:15 Ordered BILIRUBIN DIRECT [CHEM] DAILY Lab 10/02/20 07:15 Ordered BILIRUBIN DIRECT [CHEM] DAILY Lab 10/03/20 07:15 Ordered COMPREHENSIVE METABOLIC PN,CMP [CHEM] DAILY Lab 09/30/20 07:15 Ordered COMPREHENSIVE METABOLIC PN,CMP [CHEM] DAILY Lab 10/01/20 07:15 Ordered COMPREHENSIVE METABOLIC PN,CMP [CHEM] DAILY Lab 10/02/20 07:15 Ordered COMPREHENSIVE METABOLIC PN,CMP [CHEM] DAILY Lab 10/03/20 07:15 Ordered CULTURE BLOOD [BC] Stat Lab 09/29/20 06:26 Received CULTURE BLOOD [BC] Stat Lab 09/29/20 06:37 Received Acetaminophen [TylenoL] Med 09/29/20 08:29 Active 650 mg PO Q4H PRN Albuterol/Ipratropium [Combivent Respimat] Med 09/29/20 12:00 Active See Dose Instructions INH QID Dextromethorphan/guaiFENesin [Robitussin DM] Med 09/29/20 10:13 Active 10 ml PO Q4H PRN Enoxaparin [Lovenox] Med 09/29/20 08:30 Active 40 mg SUBCUT Q24H Lactated Ringers [Ringers, Lactated] 1,000 ml Med 09/29/20 06:15 Active IV ASDIRECTED Pneumococcal Polyvalent-23 Vac [Pneumovax 23] Med 09/29/20 12:00 Once 0.5 ml IM .ONCE ONE Sodium Chloride 0.9% [Saline Flush] Med 09/29/20 06:03 Active 10 ml FLUSH ASDIRECTED PRN Sodium Chloride 0.9% [Saline Flush] Med 09/29/20 06:03 Active 2.5 ml FLUSH ASDIRECTED PRN Blood Culture x2 Reflex Set [OM.PC] Stat Ot 09/29/20 06:04 Ordered RT Acapella [RESPCARE] Routine Ot 09/29/20 08:31 Active Saline Lock Insert [OM.PC] Stat Ot 09/29/20 06:04 Ordered Severe Sepsis Onset Time [OM.PC] Stat Ot 09/29/20 06:04 Ordered Resuscitation Status Routine Resus Stat 09/29/20 08:29 Ordered Medication Orders Acetaminophen (Acetaminophen 325 Mg Tab) 650 mg PO Q4H PRN PRN Reason: Pain (Mild 1-3)/fever Albuterol/Ipratropium (Albuterol/Ipratropium 4 Gm Inhalation [place]) 0 gm INH QID PREM Enoxaparin Sodium (Enoxaparin 40 Mg/0.4 Ml Syringe) 40 mg SUBCUT Q24H PREM Guaifenesin/Dextromethorphan (Guaifenesin/Dextromethorphan 100-10 Mg/5 Ml Soln 10 Ml Cup) 10 ml PO Q4H PRN PRN Reason: Cough Lactated Ringer's (Ringers, Lactated) 1,000 mls @ 999 mls/hr IV ASDIRECTED PREM Last Admin: 09/29/20 06:11 Dose: 999 mls/hr Documented by: [facility] Pneumococcal Polyvalent Vaccine (Pneumococcal Polyvalent-23 Vaccine 0.5 Ml Sdv) 0.5 ml IM .ONCE ONE Stop: 09/29/20 12:01 Sodium Chloride (Sodium Chloride 0.9% 10 Ml Syringe) 10 ml FLUSH ASDIRECTED PRN PRN Reason: Keep Vein Open Last Admin: 09/29/20 06:11 Dose: 10 ml Documented by: MICHELL Sodium Chloride (Sodium Chloride 0.9% 2.5 Ml Syringe) 2.5 ml FLUSH ASDIRECTED PRN PRN Reason: Keep Vein Open Last Admin: 09/29/20 06:11 Dose: 2.5 ml Documented by: MICHELL Assessment/Plan Comment:: 24 y/o F admitted for acute hypoxic failure sec to COVID pneumonia cont oxygen via NC, cont dexamethasone, cont Remdesivir and Lovenox, start Combivent start IV Levaquin for possible superimposed bacterial pneumonia Check CBC, CMP, Mg daily Wean off oxygen as able Eating and drinking well, will hold off any additional IV fluids
[2020-09-29] MEDS: Albuterol/Ipratropium 4 GM Inhalation Spray INH SCH ×3 (12:00→23:33)
[2020-09-29] MEDS ORDERED: Pneumococcal Polyvalent-23 Vaccine 0.5 ML SDV IM ONE (12:00)
[2020-09-29] MEDS: guaiFENesin/Dextromethorphan 100-10 MG/5 ML Soln 10 ML Cup PO PRN ×2 (12:52→20:46)
[2020-09-29] MEDS: Enoxaparin 40 MG/0.4 ML Syringe SUBCUT SCH (13:04)
[2020-09-30] MEDS: Albuterol/Ipratropium 4 GM Inhalation Spray INH SCH ×4 (06:02→23:15)
[2020-09-30 06:53] LABS: BLOOD UREA NITROGEN,BUN 14 mg/dL (7.0-18.0); CARBON DIOXIDE,CO2 25.4 mmol/L (21.0-32.0); GLUCOSE RANDOM 93 mg/dL (74-106)
[2020-09-30 07:03] LABS: CHLORIDE,CL 105 mmol/L (98-107); POTASSIUM,K 3.6 mmol/L (3.5-5.1); SODIUM,NA 142 mmol/L (136-145)
[2020-09-30] MEDS: Dexamethasone 4 MG Tab PO SCH (08:24)
[2020-09-30] MEDS: Enoxaparin 40 MG/0.4 ML Syringe SUBCUT SCH (08:24)
[2020-09-30] MEDS: Acetaminophen 325 MG Tab PO PRN ×2 (08:49→23:15)
[2020-09-30] MEDS: REMDESIVIR 100 MG in Sodium Chloride 0.9% 100 ML IV SCH (09:58)
--- NOTE | 2020-09-30 14:18 | PCM.PN ---
- General Info Date of Service: 09/30/20 - Review of Systems Systems Review Comment:: feeling better, reports cough, fever this morning. - Patient Data Vitals - Most Recent: Last Vital Signs Temp 36.9 C 09/30/20 12:32 Pulse 77 09/30/20 12:32 Resp 19 09/30/20 12:32 BP 109/61 09/30/20 12:32 Pulse Ox 96 09/30/20 12:32 Weight - Most Recent: 97.976 kg I&O - Last 24 Hours: Intake & Output 09/29/20 09/30/20 09/30/20 22:59 06:59 14:59 Intake Total 650 580 Output Total 400 Balance 250 580 Lab Results Last 24 Hours: Laboratory Results - last 24 hr 09/30/20 09/30/20 Range/Units 06:10 06:10 WBC 5.64 (4.0-11.0) K/uL RBC 4.42 (4.30-5.90) M/uL Hgb 13.4 (12.0-16.0) g/dL Hct 39.7 (36.0-46.0) % MCV 89.8 (80.0-98.0) fL MCH 30.3 (27.0-32.0) pg MCHC 33.8 (31.0-37.0) g/dL RDW Std Deviation 44.1 (28.0-62.0) fl RDW Coeff of John 13 (11.0-15.0) % Plt Count 174 (150-400) K/uL MPV 10.20 (7.40-12.00) fL Neut % (Auto) 63.7 (48.0-80.0) % Lymph % (Auto) 28.7 (16.0-40.0) % [place] % (Auto) 7.4 (0.0-15.0) % Eos % (Auto) 0.0 (0.0-7.0) % Baso % (Auto) 0.2 (0.0-1.5) % Neut # (Auto) 3.6 (1.4-5.7) K/uL Lymph # (Auto) 1.6 (0.6-2.4) K/uL [place] # (Auto) 0.4 (0.0-0.8) K/uL Eos # (Auto) 0.0 (0.0-0.7) K/uL Baso # (Auto) 0.0 (0.0-0.1) K/uL Nucleated RBC % 0.0 /100WBC Nucleated RBCs # 0 K/uL Sodium 142 (136-145) mmol/L Potassium 3.6 (3.5-5.1) mmol/L Chloride 105 (98-107) mmol/L Carbon Dioxide 25.4 (21.0-32.0) mmol/L BUN 14 (7.0-18.0) mg/dL Creatinine 0.9 (0.6-1.0) mg/dL Est Cr Clr Drug Dosing 95.55 mL/min Estimated GFR (MDRD) > 60.0 ml/min Glucose 93 (74-106) mg/dL Calcium 8.0 L (8.5-10.1) mg/dL Phosphorus 3.4 (2.6-4.7) mg/dL Magnesium 1.8 (1.8-2.4) mg/dL Total Bilirubin 0.2 (0.2-1.0) mg/dL AST 39 H (15-37) IU/L ALT 38 (14-63) IU/L Alkaline Phosphatase 47 (46-116) U/L Total Protein 7.0 (6.4-8.2) g/dL Albumin 3.3 L (3.4-5.0) g/dL Globulin 3.7 (2.6-4.0) g/dL Albumin/Globulin Ratio 0.9 (0.9-1.6) [place]ales Results Last 24 Hours: Microbiology 09/29/20 06:26 Aerobic Blood Culture - Preliminary Blood - Venous NO GROWTH AFTER 1 DAY Anaerobic Blood Culture - Preliminary NO GROWTH AFTER 1 DAY 09/29/20 06:37 Aerobic Blood Culture - Preliminary Blood - Venous - Lab Draw NO GROWTH AFTER 1 DAY Anaerobic Blood Culture - Preliminary NO GROWTH AFTER 1 DAY Med Orders - Current: Current Medications Acetaminophen (Acetaminophen 325 Mg Tab) 650 mg PO Q4H PRN PRN Reason: Pain (Mild 1-3)/fever Last Admin: 09/30/20 08:49 Dose: 650 mg Documented by: Albuterol/Ipratropium (Albuterol/Ipratropium 4 Gm Inhalation [place]) 0 gm INH QID PREM Last Admin: 09/30/20 11:28 Dose: 1 puff Documented by: Dexamethasone (Dexamethasone 4 Mg Tab) 6 mg PO DAILY [facility] Last Admin: 09/30/20 08:24 Dose: 6 mg Documented by: Enoxaparin Sodium (Enoxaparin 40 Mg/0.4 Ml Syringe) 40 mg SUBCUT Q24H [facility] Last Admin: 09/30/20 08:24 Dose: 40 mg Documented by: Guaifenesin/Dextromethorphan (Guaifenesin/Dextromethorphan 100-10 Mg/5 Ml Soln 10 Ml Cup) 10 ml PO Q4H PRN PRN Reason: Cough Last Admin: 09/29/20 20:46 Dose: 10 ml Documented by: Lactated Ringer's (Ringers, Lactated) 1,000 mls @ 999 mls/hr IV ASDIRECTED PREM Last Admin: 09/29/20 06:11 Dose: 999 mls/hr Documented by: Remdesivir 100 mg/ Sodium (Chloride) 100 mls @ 100 mls/hr IV Q24H [facility] Stop: 10/03/20 08:59 Last Admin: 09/30/20 09:58 Dose: 100 mls/hr Documented by: Sodium Chloride (Sodium Chloride 0.9% 10 Ml Syringe) 10 ml FLUSH ASDIRECTED PRN PRN Reason: Keep Vein Open Last Admin: 09/29/20 06:11 Dose: 10 ml Documented by: Sodium Chloride (Sodium Chloride 0.9% 2.5 Ml Syringe) 2.5 ml FLUSH ASDIRECTED PRN PRN Reason: Keep Vein Open Last Admin: 09/29/20 06:11 Dose: 2.5 ml Documented by: Discontinued Medications Acetaminophen (Acetaminophen 500 Mg Tab) 1,000 mg PO ONETIME ONE Stop: 09/29/20 06:07 Last Admin: 09/29/20 06:14 Dose: 1,000 mg Documented by: Albuterol (Albuterol 8 Gm Inhaler) Confirm Administered Dose 8 gm INH .STK-MED ONE Stop: 09/29/20 06:48 Last Admin: 09/29/20 06:55 Dose: 2 puff Documented by: Dexamethasone (Dexamethasone 10 Mg/Ml Sdv) 10 mg IVPUSH ONETIME ONE Stop: 09/29/20 06:07 Last Admin: 09/29/20 06:14 Dose: 10 mg Documented by: Remdesivir 200 mg/ Sodium (Chloride) 250 mls @ 250 mls/hr IV ONETIME ONE Stop: 09/29/20 07:03 Last Admin: 09/29/20 07:40 Dose: 250 mls/hr Documented by: Ketorolac Tromethamine (Ketorolac 15 Mg/Ml Sdv) 15 mg IVPUSH ONETIME ONE Stop: 09/29/20 06:07 Last Admin: 09/29/20 06:14 Dose: 15 mg Documented by: Pneumococcal Polyvalent Vaccine (Pneumococcal Polyvalent-23 Vaccine 0.5 Ml Sdv) 0.5 ml IM .ONCE ONE Stop: 09/29/20 12:01 - Exam General: Alert, Oriented Neck: Supple Lungs: Clear to Auscultation, Normal Respiratory Effort Cardiovascular: Regular Rate, Regular Rhythm GI/Abdominal Exam: Normal Bowel Sounds, Soft, Non-Tender Extremities: Non-Tender, No Pedal Edema Skin: Warm, Dry, Intact Neurological: No New Focal Deficit - Patient Data Lab Results Last 24 hrs: Laboratory Results - last 24 hr 09/30/20 09/30/20 Range/Units 06:10 06:10 WBC 5.64 (4.0-11.0) K/uL RBC 4.42 (4.30-5.90) M/uL Hgb 13.4 (12.0-16.0) g/dL Hct 39.7 (36.0-46.0) % MCV 89.8 (80.0-98.0) fL MCH 30.3 (27.0-32.0) pg MCHC 33.8 (31.0-37.0) g/dL RDW Std Deviation 44.1 (28.0-62.0) fl RDW Coeff of John 13 (11.0-15.0) % Plt Count 174 (150-400) K/uL MPV 10.20 (7.40-12.00) fL Neut % (Auto) 63.7 (48.0-80.0) % Lymph % (Auto) 28.7 (16.0-40.0) % [place] % (Auto) 7.4 (0.0-15.0) % Eos % (Auto) 0.0 (0.0-7.0) % Baso % (Auto) 0.2 (0.0-1.5) % Neut # (Auto) 3.6 (1.4-5.7) K/uL Lymph # (Auto) 1.6 (0.6-2.4) K/uL [place] # (Auto) 0.4 (0.0-0.8) K/uL Eos # (Auto) 0.0 (0.0-0.7) K/uL Baso # (Auto) 0.0 (0.0-0.1) K/uL Nucleated RBC % 0.0 /100WBC Nucleated RBCs # 0 K/uL Sodium 142 (136-145) mmol/L Potassium 3.6 (3.5-5.1) mmol/L Chloride 105 (98-107) mmol/L Carbon Dioxide 25.4 (21.0-32.0) mmol/L BUN 14 (7.0-18.0) mg/dL Creatinine 0.9 (0.6-1.0) mg/dL Est Cr Clr Drug Dosing 95.55 mL/min Estimated GFR (MDRD) > 60.0 ml/min Glucose 93 (74-106) mg/dL Calcium 8.0 L (8.5-10.1) mg/dL Phosphorus 3.4 (2.6-4.7) mg/dL Magnesium 1.8 (1.8-2.4) mg/dL Total Bilirubin 0.2 (0.2-1.0) mg/dL AST 39 H (15-37) IU/L ALT 38 (14-63) IU/L Alkaline Phosphatase 47 (46-116) U/L Total Protein 7.0 (6.4-8.2) g/dL Albumin 3.3 L (3.4-5.0) g/dL Globulin 3.7 (2.6-4.0) g/dL Albumin/Globulin Ratio 0.9 (0.9-1.6) Result Diagrams: 09/30/20 06:10 09/30/20 06:10 [place]ales Results Last 24 hrs: Microbiology 09/29/20 06:26 Aerobic Blood Culture - Preliminary Blood - Venous NO GROWTH AFTER 1 DAY Anaerobic Blood Culture - Preliminary NO GROWTH AFTER 1 DAY 09/29/20 06:37 Aerobic Blood Culture - Preliminary Blood - Venous - Lab Draw NO GROWTH AFTER 1 DAY Anaerobic Blood Culture - Preliminary NO GROWTH AFTER 1 DAY Sepsis Event Note - Evaluation Sepsis Screening Result: No Definite Risk - Focused Exam Vital Signs: Vital Signs Temp Temp Pulse Resp BP Pulse Ox 09/30/20 12:32 36.9 C 77 19 109/61 96 09/30/20 10:03 37.4 C 09/30/20 08:49 38.4 C H 09/30/20 08:00 38.4 C H 87 18 103/55 L 87 L 09/30/20 04:45 36.6 C 87 18 95/58 L 93 L - Problem List Review Problem List Initiated/Reviewed/Updated: Yes - My Orders Last 24 Hours: My Active Orders 10/01/20 05:11 CBC WITH AUTO DIFF [HEME] AM COMPREHENSIVE METABOLIC PN,CMP [CHEM] AM - Plan Plan:: 24 y/o F admitted for acute hypoxic failure sec to COVID pneumonia weaned off oxygen this morning, cont dexamethasone, cont Remdesivir and Lovenox, continue Combivent conitnue t IV Levaquin for possible superimposed bacterial pneumonia Check CBC, CMP, Mg daily Eating and drinking well, will hold off any additional IV fluids dispo: likely home tomorrow.
[2020-09-30] MEDS: guaiFENesin/Dextromethorphan 100-10 MG/5 ML Soln 10 ML Cup PO PRN (20:41)
[2020-10-01] MEDS: Albuterol/Ipratropium 4 GM Inhalation Spray INH SCH ×2 (06:36→12:20)
[2020-10-01 06:50] LABS: BLOOD UREA NITROGEN,BUN 13 mg/dL (7.0-18.0); CARBON DIOXIDE,CO2 26.4 mmol/L (21.0-32.0); CHLORIDE,CL 106 mmol/L (98-107); GLUCOSE RANDOM 93 mg/dL (74-106); POTASSIUM,K 3.5 mmol/L (3.5-5.1); SODIUM,NA 142 mmol/L (136-145)
[2020-10-01] MEDS: REMDESIVIR 100 MG in Sodium Chloride 0.9% 100 ML IV SCH (09:14)
[2020-10-01] MEDS: Dexamethasone 4 MG Tab PO SCH (09:14)
[2020-10-01] MEDS: Enoxaparin 40 MG/0.4 ML Syringe SUBCUT SCH (09:15)
[2020-10-01] MEDS: guaiFENesin/Dextromethorphan 100-10 MG/5 ML Soln 10 ML Cup PO PRN (10:14)
--- NOTE | 2020-10-01 12:31 | PCM.DCSUM1 ---
Discharge Summary - Hospital Course Free Text/Narrative:: Patient a 24-year-old female with history significant for asthma, rheumatoid arthritis diagnosed when 12 y/o, (currently not on any medications), fibromyalgia as well as a recent diagnosis of coronavirus on September 24 who presents ER today secondary to increasing shortness of breath, persistent fevers, diffuse myalgias, nonproductive cough, sore throat that is been progressively getting worse since her diagnosis. Patient has not received the coronavirus vaccination. Patient reports she has had nausea with no vomiting or diarrhea. Patient denies any dysuria, frequency, urgency. Patient denies any productive cough. Patient denies any hemoptysis. Patient denies any calf swelling or edema. Patient is currently not on any control pills and has not had a history for PE or DVT in the past. In the ER patient was found to be hypoxic in mid 80s, started on 2L ts on NC which improved her oxygen stats to 92%, patient ended up needing 4 Lts in next few hours, she was started on IV remdesidvir, IV dexamethasone, CXR showed patchy opacity in right lung base, Patient was admitted for further management Hospital course: Pt was placed in [facility] isolation room and started on 10 Liters high flow before returning to <10 liters in a brief amount of time. Continued w. PO dexamethasone, IV remdesevir, Combivent q 4 hrs and encouraged acapella/proning and IS per protocol. labs throughout stay were unremarkable Throughout stay pt was weaned down and ultimately off o2 w.in 48 hours in a gradient fashion. Coughing fits were controlled w. PO guaifenesin and pt was discharged , on RA, is stable condition. pt did not experience any SOB at rest/exertion. pt ultimately requested discharge. pt was discharged in stable condition w.o any need for supplement o. advised to quarantine per CDC guidelines and to return and or notify provider if SOB, CP, intractable N/V develop. pt understood and agreed. pt discharged in stable condition; follow up placed w. pts PCP and outpatient clinic. - Discharge Data Discharge Date: 10/01/20 Discharge Disposition: Home, Self-Care 01 Condition: Fair - Referral to Home Health Primary Care Physician: PCP None - Patient Instructions Diet: Usual Diet as Tolerated Notify Provider of: Nausea and/or Vomiting Other/Special Instructions: Notify your provider or proceed to the ED immedaitely if you develop difficulty breathing, chest pain or any other alarming symptoms. Follow up with your pcp as scheduled. [place] at home per CDC guidelines - Discharge Plan *PRESCRIPTION DRUG MONITORING PROGRAM REVIEWED*: No *COPY OF PRESCRIPTION DRUG MONITORING REPORT IN PATIENT BROCK: No Home Medications: Home Meds Albuterol Sulfate [Albuterol Sulfate HFA] 2 puff INH Q6H PRN 09/24/20 [History] Acetaminophen [Tylenol] 650 mg PO Q4H PRN tablet 10/01/20 [Rx] Oxygen Therapy Mode: Room Air Patient Handouts: Hypoxia, Ipratropium; Albuterol Inhalation [place] (Combivent Respimat), COVID-19, What You Should Know About COVID-19 to Protect Yourself and Others - CDC Referrals: Nacho Lizarraga MD [Physician] - 10/08/20 10:30 am - Discharge Summary/Plan Comment DC Time >30 min.: No - Patient Data Vitals - Most Recent: Last Vital Signs Temp 97.9 F 10/01/20 08:00 Pulse 75 10/01/20 08:00 Resp 18 10/01/20 08:00 BP 98/65 10/01/20 08:00 Pulse Ox 92 L 10/01/20 08:00 Weight - Most Recent: 97.976 kg I&O - Last 24 hours: Intake & Output 09/30/20 10/01/20 10/01/20 22:59 06:59 14:59 Intake Total 1000 1200 Output Total 400 Balance 600 1200 Lab Results - Last 24 hrs: Laboratory Results - last 24 hr 10/01/20 10/01/20 Range/Units 05:55 05:55 WBC 4.19 (4.0-11.0) K/uL RBC 4.21 L (4.30-5.90) M/uL Hgb 12.6 (12.0-16.0) g/dL Hct 37.8 (36.0-46.0) % MCV 89.8 (80.0-98.0) fL MCH 29.9 (27.0-32.0) pg MCHC 33.3 (31.0-37.0) g/dL RDW Std Deviation 43.8 (28.0-62.0) fl RDW Coeff of John 13 (11.0-15.0) % Plt Count 207 (150-400) K/uL MPV 10.20 (7.40-12.00) fL Neut % (Auto) 42.4 L (48.0-80.0) % Lymph % (Auto) 43.4 H (16.0-40.0) % [place] % (Auto) 13.8 (0.0-15.0) % Eos % (Auto) 0.2 (0.0-7.0) % Baso % (Auto) 0.2 (0.0-1.5) % Neut # (Auto) 1.8 (1.4-5.7) K/uL Lymph # (Auto) 1.8 (0.6-2.4) K/uL [place] # (Auto) 0.6 (0.0-0.8) K/uL Eos # (Auto) 0.0 (0.0-0.7) K/uL Baso # (Auto) 0.0 (0.0-0.1) K/uL Nucleated RBC % 0.0 /100WBC Nucleated RBCs # 0 K/uL Sodium 142 (136-145) mmol/L Potassium 3.5 (3.5-5.1) mmol/L Chloride 106 (98-107) mmol/L Carbon Dioxide 26.4 (21.0-32.0) mmol/L BUN 13 (7.0-18.0) mg/dL Creatinine 0.8 (0.6-1.0) mg/dL Est Cr Clr Drug Dosing 107.50 mL/min Estimated GFR (MDRD) > 60.0 ml/min Glucose 93 (74-106) mg/dL Calcium 7.9 L (8.5-10.1) mg/dL Total Bilirubin 0.3 (0.2-1.0) mg/dL AST 43 H (15-37) IU/L ALT 46 (14-63) IU/L Alkaline Phosphatase 46 (46-116) U/L Total Protein 6.9 (6.4-8.2) g/dL Albumin 3.2 L (3.4-5.0) g/dL Globulin 3.7 (2.6-4.0) g/dL Albumin/Globulin Ratio 0.9 (0.9-1.6) MARGARET Results - Last 24 hrs: Microbiology 05/15/21 06:26 Aerobic Blood Culture - Preliminary Blood - Venous NO GROWTH AFTER 2 DAYS Anaerobic Blood Culture - Preliminary NO GROWTH AFTER 2 DAYS 09/29/20 06:37 Aerobic Blood Culture - Preliminary Blood - Venous - Lab Draw NO GROWTH AFTER 2 DAYS Anaerobic Blood Culture - Preliminary NO GROWTH AFTER 2 DAYS Med Orders - Current: Current Medications Acetaminophen (Acetaminophen 325 Mg Tab) 650 mg PO Q4H PRN PRN Reason: Pain (Mild 1-3)/fever Last Admin: 09/30/20 23:15 Dose: 650 mg Documented by: Albuterol/Ipratropium (Albuterol/Ipratropium 4 Gm Inhalation [place]) 0 gm INH QID [facility] Last Admin: 10/01/20 12:20 Dose: 1 puff Documented by: Dexamethasone (Dexamethasone 4 Mg Tab) 6 mg PO DAILY [facility] Last Admin: 10/01/20 09:14 Dose: 6 mg Documented by: Enoxaparin Sodium (Enoxaparin 40 Mg/0.4 Ml Syringe) 40 mg SUBCUT Q24H [facility] Last Admin: 10/01/20 09:15 Dose: 40 mg Documented by: Guaifenesin/Dextromethorphan (Guaifenesin/Dextromethorphan 100-10 Mg/5 Ml Soln 10 Ml Cup) 10 ml PO Q4H PRN PRN Reason: Cough Last Admin: 10/01/20 10:14 Dose: 10 ml Documented by: Lactated Ringer's (Ringers, Lactated) 1,000 mls @ 999 mls/hr IV ASDIRECTED [facility] Last Admin: 09/29/20 06:11 Dose: 999 mls/hr Documented by: Remdesivir 100 mg/ Sodium (Chloride) 100 mls @ 100 mls/hr IV Q24H [facility] Stop: 10/03/20 08:59 Last Admin: 10/01/20 09:14 Dose: 100 mls/hr Documented by: Sodium Chloride (Sodium Chloride 0.9% 10 Ml Syringe) 10 ml FLUSH ASDIRECTED PRN PRN Reason: Keep Vein Open Last Admin: 09/29/20 06:11 Dose: 10 ml Documented by: Sodium Chloride (Sodium Chloride 0.9% 2.5 Ml Syringe) 2.5 ml FLUSH ASDIRECTED PRN PRN Reason: Keep Vein Open Last Admin: 09/29/20 06:11 Dose: 2.5 ml Documented by: Discontinued Medications Acetaminophen (Acetaminophen 500 Mg Tab) 1,000 mg PO ONETIME ONE Stop: 09/29/20 06:07 Last Admin: 09/29/20 06:14 Dose: 1,000 mg Documented by: Albuterol (Albuterol 8 Gm Inhaler) Confirm Administered Dose 8 gm INH .STK-MED ONE Stop: 09/29/20 06:48 Last Admin: 09/29/20 06:55 Dose: 2 puff Documented by: Dexamethasone (Dexamethasone 10 Mg/Ml Sdv) 10 mg IVPUSH ONETIME ONE Stop: 09/29/20 06:07 Last Admin: 09/29/20 06:14 Dose: 10 mg Documented by: Remdesivir 200 mg/ Sodium (Chloride) 250 mls @ 250 mls/hr IV ONETIME ONE Stop: 09/29/20 07:03 Last Admin: 09/29/20 07:40 Dose: 250 mls/hr Documented by: Ketorolac Tromethamine (Ketorolac 15 Mg/Ml Sdv) 15 mg IVPUSH ONETIME ONE Stop: 09/29/20 06:07 Last Admin: 09/29/20 06:14 Dose: 15 mg Documented by: Pneumococcal Polyvalent Vaccine (Pneumococcal Polyvalent-23 Vaccine 0.5 Ml Sdv) 0.5 ml IM .ONCE ONE Stop: 09/29/20 12:01
[2020-10-01 15:15] VITALS: BP 105/75; PULSE 84
== END 2020-10-01 15:15 | disposition home or self-care (01) | DRG 177 ==
LOC: MW.ED 05:35 → UNDOADMIN 08:15 → MW.MS 08:15
PROVIDERS: ADMIT Student in an Organized Health Care Education/Training Program; ATTEND Student in an Organized Health Care Education/Training Program
PROC: 8E0ZXY6 Isolation (ICD-10-PCS; principal; 2020-09-29)
PROC: XW033F5 Introduction of Other New Technology Therapeutic Substance into Peripheral Vein, Percutaneous Approach, New Technology Group 5 (ICD-10-PCS; 2020-09-29)
PROC: XW033E5 Introduction of Remdesivir Anti-infective into Peripheral Vein, Percutaneous Approach, New Technology Group 5 (ICD-10-PCS; 2020-09-29)
DX: U07.1 COVID-19 (principal); J12.82 Pneumonia due to coronavirus disease 2019; J96.01 Acute respiratory failure with hypoxia; J15.9 Unspecified bacterial pneumonia; F41.9 Anxiety disorder, unspecified; Z90.89 Acquired absence of other organs; M06.9 Rheumatoid arthritis, unspecified
CPT/HCPCS: 36415; 71045; 71045-26; 80053; 81001; 81025; 83605; 83735; 84100; 85025; 85379; 87040; 96374; 96375; 99284; 99285-25; A9270-GY; J1100; J1650; J1885; J7050; J7120; J8540

== ENCOUNTER 2021-05-31 13:20 | Emergency (ER) | payer OTHER ==
[2021-05-31 14:20] LABS: CORONAVIRUS COVID-19 NAA POSITIVE (NEGATIVE); INFLUENZA A NAA NEGATIVE (NEGATIVE); INFLUENZA B NAA NEGATIVE (NEGATIVE); RESPIRATORY SYNCYTIAL VIR NAA NEGATIVE (NEGATIVE)
[2021-05-31 15:24] VITALS: BP 115/65; PULSE 94
== END 2021-05-31 15:23 | disposition home or self-care (01) ==
LOC: MW.ED 13:20
DX: U07.1 COVID-19 (principal); J45.909 Unspecified asthma, uncomplicated; Z88.0 Allergy status to penicillin; Z91.041 Radiographic dye allergy status; Z91.018 Allergy to other foods
CPT/HCPCS: 0241U; 93005; 99285-25

== ENCOUNTER 2021-10-04 16:28 | Emergency (ER) | payer OTHER ==
[2021-10-04] MEDS ORDERED: diphenhydrAMINE 50 MG/ML SDV IM STA (17:24)
[2021-10-04] MEDS ORDERED: Prochlorperazine 10 MG/2 ML SDV IM ONE (17:24)
[2021-10-04 18:52] VITALS: BP 121/73; PULSE 81
== END 2021-10-04 18:52 | disposition home or self-care (01) ==
LOC: MW.ED 16:28
DX: G43.909 Migraine, unspecified, not intractable, without status migrainosus (principal); Z88.0 Allergy status to penicillin; Z91.018 Allergy to other foods; Z91.041 Radiographic dye allergy status; Z86.16 Personal history of COVID-19
CPT/HCPCS: 96372; 99283; J0780; J1200

== ENCOUNTER 2021-10-20 11:16 | Emergency (ER) | payer OTHER ==
[2021-10-20 12:45] VITALS: BP 114/82; PULSE 72
== END 2021-10-20 12:44 | disposition home or self-care (01) ==
LOC: MW.ED 11:16
DX: S62.001A Unspecified fracture of navicular [scaphoid] bone of right wrist, initial encounter for closed fracture (principal); S52.571A Other intraarticular fracture of lower end of right radius, initial encounter for closed fracture; Z88.0 Allergy status to penicillin; Z91.041 Radiographic dye allergy status; Z91.018 Allergy to other foods; Z86.16 Personal history of COVID-19; W18.09XA Striking against other object with subsequent fall, initial encounter
CPT/HCPCS: 29125; 73110-26-RT; 73110-RT; 99283-25